=== PATIENT | female | born 1945 | race Caucasian/White ===

== ENCOUNTER 2017-10-22 20:38 | Emergency (ER) | payer OTHER ==
[~2017-10-22] VITALS: Ht 162.6 cm; Wt 50.9 kg
[~2017-10-22 20:38] MED LIST: AMT50 PO; LEVO100T PO
[2017-10-22 20:46] VITALS: Ht 162.6 cm; Wt 50.9 kg
[2017-10-22] MEDS ORDERED: SODIUM CHLORIDE 0.9% 1000ML 1,000 ML IV STA (20:51)
[2017-10-22] MEDS ORDERED: LEVO88TA3 PO (20:53)
[2017-10-22] MEDS ORDERED: CZR25 PO (20:53)
[2017-10-22] MEDS ORDERED: AMT/25 PO (20:53)
[2017-10-22] MEDS ORDERED: LORA-741 PO (20:53)
--- NOTE | 2017-10-22 20:55 | EMERGENCY ROOM VISIT NOTE ---
History Report prepared by Zara: Bridgett Goff Under the Supervision of: Dr. Farrukh Carter M.D. First contact with patient: 20:44 Stated Complaint: DIZZY/CONFUSED History of Present Illness The patient is a 72 year old female who presents to the Emergency Room with complaints of an episode of confusion and dizziness occurring about two hours ago. Per , the patient was not talking normally and states she was seeing "imaginary things". She denies any fevers, headache, chills, vomiting, diarrhea, cough, or congestion. The patient states she has been eating and drinking normally. She states she has never had something like this happen before. The patient has a history of depression. The patient notes her depression medication was increased yesterday. She reports feeling well and denies any increased depression recently. The patient denies any alcohol or drug use. Source of History: patient, spouse/significant other Onset: two hours ago Position: other (generalized) Quality: other (dizziness and confusion) Timing: other (episode) Associated Symptoms: No fevers, No chills, No headache, No cough, No vomiting, No diarrhea Review of Systems See HPI for pertinent positives and negatives. A total of ten systems were reviewed and were otherwise negative. Past Medical & Surgical Medical Problems: (1) No Known Active Medical Problems Family History Patient reports no known family medical history. Social History Smoking Status: Never Smoker Smokeless Tobacco Use: No Alcohol Use: none Drug Use: none Marital Status: Housing Status: lives with significant other Current/Historical Medications Scheduled Amitriptyline HCl (Amitriptyline HCl), 75 MG PO HS Cephalexin Monohydrate (Keflex), 500 MG PO BID Levothyroxine Sodium (Levothyroxine Sodium), 88 MCG PO DAILY Losartan Potassium (Losartan Potassium), 25 MG PO DAILY Scheduled PRN Lorazepam (Ativan), 0.5 MG PO Q8 PRN for Anxiety Allergies Coded Allergies: Codeine (Unverified Allergy, Unknown, VOMITING, 10/22/17) Prochlorperazine (Unverified Allergy, Unknown, "my jaw locks.", 10/22/17) "my jaw locks." Physical Exam Vital Signs Date Time Temp Pulse Resp B/P (MAP) Pulse Ox O2 Delivery O2 Flow Rate FiO2 10/22/17 23:14 36.9 92 18 161/86 99 10/22/17 22:00 90 16 172/93 94 Room Air 10/22/17 21:14 94 18 149/77 Room Air 10/22/17 20:51 97 10/22/17 20:46 37.6 96 18 161/89 97 Room Air Physical Exam GENERAL: Awake, alert, well-appearing, in no distress HENT: Normocephalic, atraumatic. Oropharynx unremarkable. Dry MM. EYES: Normal conjunctiva. Sclera non-icteric. NECK: Supple. No nuchal rigidity. FROM. No JVD. RESPIRATORY: Clear to auscultation. CARDIAC: Regular rate, normal rhythm. Extremities warm and well perfused. Pulses equal. ABDOMEN: Soft, non-distended. No tenderness to palpation. No rebound or guarding. No masses. RECTAL: Deferred. MUSCULOSKELETAL: Chest examination reveals no tenderness. The back is symmetrical on inspection without obvious abnormality. There is no CVA tenderness to palpation. No joint edema. LOWER EXTREMITIES: Calves are equal size bilaterally and non-tender. No edema. No discoloration. NEURO: Normal sensorium. No sensory or motor deficits noted. SKIN: No rash or jaundice noted. Medical Decision & Procedures ER Provider Diagnostic Interpretation: Radiology results as stated below per my review and radiologist interpretation: CHEST ONE VIEW PORTABLE FINDINGS: There is a thoracolumbar scoliosis. The heart is normal in size. There is no failure. There is no focal pulmonary consolidation. There are no pleural effusions. There is no free intraperitoneal air. There are partially calcified bilateral breast implants.[ IMPRESSION: No active disease in the chest. Electronically signed by: Randell Andino M.D. CT HEAD WITHOUT CONTRAST (CT) FINDINGS: No intra or extra-axial mass lesions are visualized. There is no CT evidence of acute cortical infarction. There is no evidence of midline shift. There is no acute hemorrhage. No calvarial fractures are visualized. There are patchy white matter hypodensities likely on a small vessel basis. There is mild ventricular prominence, a finding felt to be secondary to volume loss. There is no evidence of acute sinusitis IMPRESSION: No acute intracranial findings Electronically signed by: Randell Andino M.D. Laboratory Results 10/22/17 20:49 Red Blood Count 3.98, Mean Corpuscular Volume 94.7, Mean Corpuscular Hemoglobin 31.4, Mean Corpuscular Hemoglobin Concent 33.2, Mean Platelet Volume 9.7, Neutrophils (%) (Auto) 68.4, Lymphocytes (%) (Auto) 15.5, Monocytes (%) (Auto) 14.3, Eosinophils (%) (Auto) 1.3, Basophils (%) (Auto) 0.2, Neutrophils # (Auto ) 8.15, Lymphocytes # (Auto) 1.85, Monocytes # (Auto) 1.70, Eosinophils # (Auto ) 0.15, Basophils # (Auto) 0.02 10/22/17 20:49 Test 10/22/17 20:49 10/22/17 21:50 10/22/17 22:12 White Blood Count 11.90 K/uL (4.8-10.8) Red Blood Count 3.98 M/uL (4.2-5.4) Hemoglobin 12.5 g/dL (12.0-16.0) Hematocrit 37.7 % (37-47) Mean Corpuscular Volume 94.7 fL (80-100) Mean Corpuscular Hemoglobin 31.4 pg (25-34) Mean Corpuscular Hemoglobin Concent 33.2 g/dl (32-36) Platelet Count 281 K/uL (130-400) Mean Platelet Volume 9.7 fL (7.4-10.4) Neutrophils (%) (Auto) 68.4 % Lymphocytes (%) (Auto) 15.5 % Monocytes (%) (Auto) 14.3 % Eosinophils (%) (Auto) 1.3 % Basophils (%) (Auto) 0.2 % Neutrophils # (Auto) 8.15 K/uL (1.4-6.5) Lymphocytes # (Auto) 1.85 K/uL (1.2-3.4) Monocytes # (Auto) 1.70 K/uL (0.11-0.59) Eosinophils # (Auto) 0.15 K/uL (0-0.5) Basophils # (Auto) 0.02 K/uL (0-0.2) RDW Standard Deviation 53.0 fL (36.4-46.3) RDW Coefficient of Variation 15.2 % (11.5-14.5) Immature Granulocyte % (Auto) 0.3 % Immature Granulocyte # (Auto) 0.03 K/uL (0.00-0.02) Anion Gap 7.0 mmol/L (3-11) Est Creatinine Clear Calc Drug Dose 35.4 ml/min Estimated GFR () 56.0 Estimated GFR (Non- 48.4 BUN/Creatinine Ratio 14.9 (10-20) Calcium Level 8.4 mg/dl (8.5-10.1) Total Bilirubin 0.3 mg/dl (0.2-1) Direct Bilirubin < 0.1 mg/dl (0-0.2) Aspartate Amino Transf (AST/SGOT) 15 U/L (15-37) Alanine Aminotransferase (ALT/SGPT) 15 U/L (12-78) Alkaline Phosphatase 95 U/L (45-117) Troponin I < 0.015 ng/ml (0-0.045) Total Protein 7.3 gm/dl (6.4-8.2) Albumin 3.7 gm/dl (3.4-5.0) Lipase 145 U/L (73-393) Thyroid Stimulating Hormone (TSH) 3.790 uIu/ml (0.300-4.500) Urine Color YELLOW Urine Appearance CLOUDY (CLEAR) Urine pH 5.0 (4.5-7.5) Urine Specific [place] 1.020 (1.000-1.030) Urine Protein NEG (NEG) Urine Glucose (UA) NEG (NEG) Urine Ketones NEG (NEG) Urine Occult Blood NEG (NEG) Urine Nitrite POS (NEG) Urine Bilirubin NEG (NEG) Urine Urobilinogen NEG (NEG) Urine Leukocyte Esterase SMALL (NEG) Urine WBC (Auto) 5-10 /hpf (0-5) Urine RBC (Auto) 0-4 /hpf (0-4) Urine Hyaline Casts (Auto) 1-5 /lpf (0-5) Urine Epithelial Cells (Auto) >30 /lpf (0-5) Urine Bacteria (Auto) 4+ (NEG) Urine Opiates Screen NEG (NEG) Urine Methadone, Qualitative NEG (NEG) Urine Barbiturates NEG (NEG) Urine Phencyclidine (PCP) Level NEG (NEG) Ur Amphetamine/Methamphetamine NEG (NEG) MDMA (Ecstasy) Screen NEG (NEG) Urine Benzodiazepines Screen NEG (NEG) Urine Cocaine Metabolite NEG (NEG) Urine Marijuana (THC) NEG (NEG) Ethyl Alcohol mg/dL < 3.0 mg/dl (0-3) Laboratory results reviewed by me Medications Administered Medications (Trade) Dose Ordered Sig/Osiel Route Start Time Stop Time Status Last Admin Dose Admin Sodium Chloride 1,000 ml @ 999 mls/hr Q1H1M STAT IV 10/22/17 20:51 10/22/17 21:51 DC 10/22/17 21:13 999 MLS/HR Cephalexin Monohydrate (Keflex Cap) 500 mg NOW STAT PO 10/22/17 22:23 10/22/17 22:24 DC 10/22/17 22:51 500 MG ECG Indication: altered mental status Rate (beats per minute): 95 Rhythm: normal sinus Findings: RBBB (incomplete), no acute ischemic change, left axis deviation ED Course 2044: The patient was evaluated in room A2. A complete history and physical exam was performed. Medical Decision I reviewed the patient's past medical history, medications, and the nursing notes as described above. Differential diagnoses: adverse medication effect, dehydration, electrolyte abnormality, pneumonia, bronchitis, intracranial mass, UTI, anxiety, depression. The patient is a 72-year-old woman with a past medical history of anxiety and depression who presents emergency Department with transient episode of change in mental status where the believes the patient was talking to herself per hpi. Note the patient denies any awareness of this episode and at this time is acting normally. The symptoms do occur in the setting of the patient having medication changes including an increase in her dose amitriptyline and Synthroid over the past several days. I'll the patient is well-appearing, in no acute distress, afebrile stable vital signs. CT head unremarkable. CXR negative. Labs demonstrate a mildly elevated WBC however in the setting of grossly positive UA with positive nitrites. Will treat with Keflex. Otherwise , given the patient is currently at her baseline with no further episodes symptoms most likely secondary to her UTI in the setting of recent medication changes. Patient to follow-up with her PCP regarding the symptoms. Findings and plan for follow-up reviewed with patient. Patient agreeable and d/c'd per discharge instructions. Medication Reconcilliation Current Medication List: was personally reviewed by me Blood Pressure Screening Patient's blood pressure: Elevated blood pressure Blood pressure disposition: Elevated BP felt to be situational Impression Primary Impression: Intermittent confusion Additional Impression: Urinary tract infection Scribe Attestation The scribe's documentation has been prepared under my direction and personally reviewed by me in its entirety. I confirm that the note above accurately reflects all work, treatment, procedures, and medical decision making performed by me. Departure Information Dispostion Home / Self-Care Prescriptions Cephalexin Monohydrate (Keflex) 500 Mg Cap 500 MG PO BID for 7 Days, #14 CAP Prov: Farrukh Carter M.D. 10/22/17 Referrals Haris Dinh MD (PCP) Forms HOME CARE DOCUMENTATION FORM, IMPORTANT VISIT INFORMATION, WORK / SCHOOL INSTRUCTIONS Patient Instructions ED Confusion, My [facility] Additional Instructions Please follow up with your primary care physician in the next 1-3 days for re- evaluation and to discuss your symptoms and new medication changes. Your symptoms are most likely due to a urinary tract infection as well as your recent medication changes. Otherwise, your exam, EKG, chest xray, CT scan of your head, and lab results did not show signs of an emergent condition at this time. Keflex as directed. Ensure hydration. Return to the emergency department for worsening symptoms as described in the accompanying instructions. Problem Qualifiers
[2017-10-22 20:58] LABS: BASO % 0.2 %; BASO ABS # 0.02 K/uL (0-0.2); EOS % 1.3 %; EOS ABS # 0.15 K/uL (0-0.5); HEMATOCRIT 37.7 % (37-47); HEMOGLOBIN 12.5 g/dL (12.0-16.0); IG# 0.03 K/uL (0.00-0.02); LYMPH % 15.5 %; LYMPH ABS # 1.85 K/uL (1.2-3.4); MEAN CELL VOLUME 94.7 fL (80-100); MEAN CORPUSCULAR HEMOGLOBIN 31.4 pg (25-34); MEAN CORPUSCULAR HGB CONC 33.2 g/dl (32-36); MEAN PLATELET VOLUME 9.7 fL (7.4-10.4); MONO % 14.3 %; NEUT % 68.4 %; NEUT ABS # 8.15 K/uL (1.4-6.5); PLATELET COUNT 281 K/uL (130-400); RED CELL DISTRIBUTION WIDTH CV 15.2 % (11.5-14.5)
--- NOTE | 2017-10-22 21:09 | DIAGNOSTIC IMAGING REPORT ---
CT HEAD WITHOUT CONTRAST (CT) CLINICAL HISTORY: Acute change in mental status. Dizziness, confusion. COMPARISON STUDY: 09/15/2015 TECHNIQUE: Axial CT of the brain is performed from the vertex to the skull base. IV contrast was not administered for this examination. A dose lowering technique was utilized adhering to the principles of ALARA. CT DOSE: 537.48 mGy.cm FINDINGS: No intra or extra-axial mass lesions are visualized. There is no CT evidence of acute cortical infarction. There is no evidence of midline shift. There is no acute hemorrhage. No calvarial fractures are visualized. There are patchy white matter hypodensities likely on a small vessel basis. There is mild ventricular prominence, a finding felt to be secondary to volume loss. There is no evidence of acute sinusitis IMPRESSION: No acute intracranial findings Electronically signed by: Randell Andino M.D. 10/22/2017 9:08 PM Dictated Date/Time: 10/22/2017 9:07 PM
[2017-10-22 21:16] LABS: ALBUMIN 3.7 gm/dl (3.4-5.0); ALT/SGPT 15 U/L (12-78); BLOOD UREA NITROGEN 17 mg/dl (7-18); CALCIUM 8.4 mg/dl (8.5-10.1); CARBON DIOXIDE 25 mmol/L (21-32); CREATININE 1.12 mg/dl (0.60-1.20); GLUCOSE 124 mg/dl (70-99); LIPASE 145 U/L (73-393); POTASSIUM 3.7 mmol/L (3.5-5.1); SODIUM 138 mmol/L (136-145)
[2017-10-22 21:27] LABS: ALKALINE PHOSPHATASE 95 U/L (45-117); AST/SGOT 15 U/L (15-37); TOTAL PROTEIN 7.3 gm/dl (6.4-8.2)
--- NOTE | 2017-10-22 21:30 | DIAGNOSTIC IMAGING REPORT ---
CHEST ONE VIEW PORTABLE CLINICAL HISTORY: Pain, radiating to the abdomen. COMPARISON STUDY: No previous studies for comparison. FINDINGS: There is a thoracolumbar scoliosis. The heart is normal in size. There is no failure. There is no focal pulmonary consolidation. There are no pleural effusions. There is no free intraperitoneal air. There are partially calcified bilateral breast implants.[ IMPRESSION: No active disease in the chest. Electronically signed by: Randell Andino M.D. 10/22/2017 9:29 PM Dictated Date/Time: 10/22/2017 9:28 PM
[2017-10-22] MEDS ORDERED: CEPHALEXIN MONOHYDRATE 250 MG CAP PO STA (22:23)
[2017-10-22] MEDS ORDERED: CEPH500C PO (22:26)
[2017-10-22 23:14] VITALS: BP 161/86; PULSE 92; TEMP 36.9; O2SAT 99
--- NOTE | 2017-10-24 10:56 | Pharmacy Progress Note ---
ED Pharmacist Culture FollowUp Date of Service: Oct 24, 2017. Patient was sent home with a prescription for Keflex 500 mg BID x 7 days, which should cover the E. coli growing from the patient's urine culture.
== END 2017-10-22 23:16 | disposition home or self-care (01) ==
LOC: EDBD 20:38 → C.EDA 20:40
DX: R41.0 Disorientation, unspecified (principal); N39.0 Urinary tract infection, site not specified; I45.10 Unspecified right bundle-branch block; Z79.899 Other long term (current) drug therapy; Z88.5 Allergy status to narcotic agent; Z88.8 Allergy status to other drugs, medicaments and biological substances

== ENCOUNTER → 2017-10-25 | Outpatient (CLI) | payer OTHER ==
[~2017-10-25] MED LIST changes: +AMT/25 PO; -AMT50 PO; +CEPH500C PO; +CZR25 PO; +GADAVIST IV PRN; -LEVO100T PO; +LEVO88TA3 PO; +LORA-741 PO
--- NOTE | 2017-10-25 13:03 | DIAGNOSTIC IMAGING REPORT ---
BRAIN COMBO CLINICAL HISTORY: HTN, SEVERE DEPRESSION DISORDER, MEMORY LOSS mental status change COMPARISON STUDY: CT 10/22/2017 TECHNIQUE: Utilizing a 1.5 Ana magnet and dedicated coil, multiplanar, multiecho imaging of the brain was performed pre and postcontrast administration. IV administration of 9 mL of Gadavist contrast was uneventful. FINDINGS: Diffusion-weighted images are negative for an acute ischemic insult. There are findings of mild age-related atrophy as well as chronic small vessel change. Mild compensatory prominence of the ventricular system is noted. Postcontrast images are negative for an enhancing lesion. Sella and parasellar regions are unremarkable. The internal artery canals are symmetric. IMPRESSION: Age-related atrophy and chronic small vessel change. No acute process. No abnormal postcontrast enhancement The above report was generated using voice recognition software. It may contain grammatical, syntax or spelling errors. Electronically signed by: Saw Hylton M.D. 10/25/2017 1:01 PM Dictated Date/Time: 10/25/2017 12:58 PM
== END | disposition home or self-care (01) ==
LOC: C.MRI 10:58
PROVIDERS: ATTEND Internal Medicine
DX: I10 Essential (primary) hypertension (principal); F33.2 Major depressive disorder, recurrent severe without psychotic features; R41.3 Other amnesia; R51 Headache

== ENCOUNTER 2019-08-30 11:12 | Inpatient (IN) ==
[2019-08-30 11:43] LABS: Basophils # (auto) 0.03 K/uL (0-0.2); Basophils % (auto) 0.5 %; Eosinophils % (auto) 4.7 %; Hematocrit (blood only) 39.7 % (37-47); Hemoglobin 13.2 g/dL (12.0-16.0); Immature Granulocytes # (auto) 0.02 K/uL (0.00-0.02); Immature Granulocytes % (auto) 0.3 %; Lymphocytes # (auto) 1.65 K/uL (1.2-3.4); Lymphocytes % (auto) 25.9 %; Mean Corpuscular Hemoglobin 31.3 pg (25-34); Mean Corpuscular Hgb Conc 33.2 g/dL (32-36); Mean Corpuscular Volume 94.1 fL (80-100); Mean Platelet Volume 10.2 fL (7.4-10.4); Monocytes # (auto) 0.73 K/uL (0.11-0.59); Monocytes % (auto) 11.4 %; Neutrophils # (auto) 3.65 K/uL (1.4-6.5); Neutrophils % (auto) 57.2 %; Platelet Count 242 K/uL (130-400); RDW Coefficient of Variation 14.6 % (11.5-14.5); RDW Standard Deviation 49.9 fL (36.4-46.3); Red Blood Count 4.22 M/uL (4.2-5.4); White Blood Count 6.38 K/uL (4.8-10.8)
[2019-08-30 11:59] LABS: Albumin Level 4.3 gm/dl (3.4-5.0); BUN Creatinine Ratio 14.8 (10-20); Calcium 8.9 mg/dl (8.5-10.1); Creatinine Clr Calc Pharmacy 40.5 ml/min; Est GFR (African American) 61.9; Est GFR (Non-African American) 53.4; Potassium 3.6 mmol/L (3.5-5.1)
[2019-08-30 12:15] LABS: Albumin Globulin Ratio 1.5 (0.9-2); Bilirubin,Total 0.5 mg/dl (0.2-1); Globulin 2.9 gm/dl (2.5-4.0); Total Protein 7.2 gm/dl (6.4-8.2); Troponin I 0.046 ng/ml (0-0.045)
--- NOTE | 2019-08-30 12:16 | XRay Report ---
XR chest 1V portable CLINICAL HISTORY: 74 years-old Female presenting with Chest Pain. TECHNIQUE: Portable upright AP view of the chest was obtained. COMPARISON: 10/22/2017. FINDINGS: Calcified bilateral breast implants noted. Cardiac silhouette mildly enlarged. Mild interstitial prom inence. No focal opacity. No large effusion or pneumothorax. Osteopenia may be present. Mild degenera tive changes and scoliosis of the spine. A hiatal hernia may be present. IMPRESSION: 1. Mild cardiomegaly. No other convincing evidence of acute cardiopulmonary disease. 2. Suspected hiatal hernia. Electronically signed by: Jose Hodges M.D. 08/30/2019 12:15 PM
[2019-08-30] MEDS ORDERED: NITROGLYCERIN 2% OINTMENT 30GM TUBE EXT STA (12:27)
[2019-08-30] MEDS ORDERED: ASPIRIN CHEW 324 MG PO STA (12:27)
--- NOTE | 2019-08-30 12:52 | Emergency Department Note ---
Entered by Leigh Price acting as a scribe for Pallavi Dugan DO History of Present Illness General Chief complaint: Chest Pain Stated complaint: chest pain x2 days l sided Time Seen by Provider: 08/30/19 12:01 Source: patient History of Present Illness Onset (ago): day(s) 2 Location: chest Radiation: neck and extremity (left arm) Pain Consistency: + constant Maximum Pain Intensity: 7 Relieved By: + medication (Advil); not by other (change in position) Associated symptoms: + denies other symptoms (flu-like symptoms, pain radiating to her back, dizziness, lightheadedness, change in bowel movements, urinary symptoms, leg swelling); no nausea/vomiting (nausea) and no shortness of breath The patient is a 74 year old female who presents to the Emergency Room with complaints of constant chest pain starting 2 days ago. The patient states that she has been having constant chest pain in the left side of her chest that radiates down her left arm and somewhat into her neck. She states that she thought it would just go away, but it has persisted. She notes that she was awake all night with it. She notes that no matter what position she tries to get in, she cannot get any relief. The patient states that she tried taking some Advil with only mild relief. She notes that it only took the edge off. The patient notes that she had flu-like symptoms a few weeks ago, but got over it and was back to normal before this happened. She notes that she does get intermittent heart burn and last had a week ago. She reports that she typically takes an antacid and it goes away, but this chest pain is different. The patient denies ever having chest pain like this before, the pain radiating to her back, shortness of breath, dizziness, lightheadedness, nausea, changes in medications, changes in activity, change in bowel movements, urinary symptoms, leg swelling, recent long travel, a family history of cardiac problems, and ever seeing a enrobing machine corder before. Home Medications Home Medications Medication Instructions Recorded Confirmed Type aripiprazole 2 mg PO DAILY 08/30/19 08/30/19 History ascorbic acid (vitamin C) [Vitamin 1,000 mg PO QAM 08/30/19 08/30/19 History C] buspirone 10 mg PO BID 08/30/19 08/30/19 History ergocalciferol (vitamin D2) 50,000 unit PO MONTHLY 08/30/19 08/30/19 History ibuprofen [Advil] 200 mg PO QID PRN 08/30/19 08/30/19 History levothyroxine [Synthroid] 44 mcg PO HAQ 08/30/19 08/30/19 History levothyroxine [Synthroid] 88 mcg PO QAM 08/30/19 08/30/19 History losartan 50 mg PO QAM 08/30/19 08/30/19 History mirtazapine 30 mg PO HS 08/30/19 08/30/19 History multivitamin 1 tab PO QAM 08/30/19 08/30/19 History venlafaxine 75 mg PO QAM 08/30/19 08/30/19 History venlafaxine 150 mg PO QAM 08/30/19 08/30/19 History Allergies Allergy/AdvReac Type Severity Reaction Status Date / Time codeine Allergy Unknown VOMITING Unverified 08/30/19 12:01 prochlorperazine Allergy Unknown "my jaw Unverified 08/30/19 12:01 locks." Past Med/Surg History Medical History Anxiety Depression Diastolic dysfunction GERD (gastroesophageal reflux disease) History of thyroid cancer HTN (hypertension) Hypothyroidism Surgical History H/O nasal septoplasty H/O thyroidectomy History of appendectomy History of tonsillectomy and adenoidectomy S/P left knee arthroscopy Family History Father Bone cancer Social History Preferred Language: Turkish Communication Ability: Effective 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 and A total of 10 systems reviewed and were otherwise negative Physical Exam Vital Signs Vital Signs - 24 hr 08/30/19 11:16 08/30/19 11:21 08/30/19 11:24 Temperature 36.6 C Temperature Source Oral Pulse Rate 95 H 90 90 Pulse Rate [Apical] Pulse Rate from SpO2 Sensor 90 Pulse Rhythm [Apical] Respiratory Rate 20 14 23 Respiratory Effort / Characteristics Respiratory Depth Respiratory Pattern Blood Pressure 160/100 H 148/93 H Blood Pressure [Left Arm] Blood Pressure Mean 120 104 Blood Pressure Mean [Left Arm] Blood Pressure Position [Left Arm] Pulse Oximetry 98 99 Oxygen Delivery Method Room Air Sepsis Recent Fever Within 48 Hours No Sepsis New/Unexplained Change in Mental Status No Sepsis Action Taken by Nursing No Action Required 08/30/19 11:30 08/30/19 11:31 08/30/19 11:35 Temperature Temperature Source Pulse Rate 90 90 Pulse Rate [Apical] Pulse Rate from SpO2 Sensor 91 H 89 Pulse Rhythm [Apical] Respiratory Rate 19 18 Respiratory Effort / Characteristics Respiratory Depth Respiratory Pattern Blood Pressure 154/100 H Blood Pressure [Left Arm] Blood Pressure Mean 114 Blood Pressure Mean [Left Arm] Blood Pressure Position [Left Arm] Pulse Oximetry 98 99 98 Oxygen Delivery Method Room Air Sepsis Recent Fever Within 48 Hours Sepsis New/Unexplained Change in Mental Status Sepsis Action Taken by Nursing 08/30/19 12:00 08/30/19 12:01 08/30/19 12:30 Temperature Temperature Source Pulse Rate 86 81 89 Pulse Rate [Apical] Pulse Rate from SpO2 Sensor 82 81 89 Pulse Rhythm [Apical] Respiratory Rate 13 15 17 Respiratory Effort / Characteristics Respiratory Depth Respiratory Pattern Blood Pressure 174/99 H 157/106 H Blood Pressure [Left Arm] Blood Pressure Mean 133 127 Blood Pressure Mean [Left Arm] Blood Pressure Position [Left Arm] Pulse Oximetry 98 97 99 Oxygen Delivery Method Sepsis Recent Fever Within 48 Hours Sepsis New/Unexplained Change in Mental Status Sepsis Action Taken by Nursing 08/30/19 12:31 08/30/19 12:42 08/30/19 12:43 Temperature Temperature Source Pulse Rate 90 93 H Pulse Rate [Apical] 94 H Pulse Rate from SpO2 Sensor 92 H Pulse Rhythm [Apical] Regular Respiratory Rate 17 18 17 Respiratory Effort / Characteristics Non-Labored Spontaneous Respiratory Depth Normal Respiratory Pattern Regular Blood Pressure 163/95 H Blood Pressure [Left Arm] 163/95 H Blood Pressure Mean 114 Blood Pressure Mean [Left Arm] 117 Blood Pressure Position [Left Arm] Pulse Oximetry 97 96 Oxygen Delivery Method Room Air Sepsis Recent Fever Within 48 Hours Sepsis New/Unexplained Change in Mental Status Sepsis Action Taken by Nursing 08/30/19 13:00 08/30/19 13:01 08/30/19 13:30 Temperature Temperature Source Pulse Rate 94 H 93 H 91 H Pulse Rate [Apical] Pulse Rate from SpO2 Sensor 92 H Pulse Rhythm [Apical] Respiratory Rate 23 18 22 Respiratory Effort / Characteristics Respiratory Depth Respiratory Pattern Blood Pressure 147/107 H 149/93 H Blood Pressure [Left Arm] Blood Pressure Mean 115 105 Blood Pressure Mean [Left Arm] Blood Pressure Position [Left Arm] Pulse Oximetry 97 Oxygen Delivery Method Sepsis Recent Fever Within 48 Hours Sepsis New/Unexplained Change in Mental Status Sepsis Action Taken by Nursing 08/30/19 13:31 08/30/19 14:56 08/30/19 15:39 Temperature Temperature Source Pulse Rate 94 H Pulse Rate [Apical] 89 Pulse Rate from SpO2 Sensor Pulse Rhythm [Apical] Regular Respiratory Rate 22 17 Respiratory Effort / Characteristics Non-Labored Spontaneous Respiratory Depth Normal Respiratory Pattern Regular Blood Pressure Blood Pressure [Left Arm] 137/73 Blood Pressure Mean Blood Pressure Mean [Left Arm] 94 Blood Pressure Position [Left Arm] Pulse Oximetry 96 Oxygen Delivery Method Room Air Room Air Sepsis Recent Fever Within 48 Hours Sepsis New/Unexplained Change in Mental Status Sepsis Action Taken by Nursing 08/30/19 16:21 Temperature 36.5 C Temperature Source Oral Pulse Rate Pulse Rate [Apical] 84 Pulse Rate from SpO2 Sensor Pulse Rhythm [Apical] Respiratory Rate 18 Respiratory Effort / Characteristics Non-Labored Spontaneous Respiratory Depth Normal Respiratory Pattern Regular Blood Pressure Blood Pressure [Left Arm] 135/80 Blood Pressure Mean Blood Pressure Mean [Left Arm] 98 Blood Pressure Position [Left Arm] Sitting Pulse Oximetry 98 Oxygen Delivery Method Room Air Sepsis Recent Fever Within 48 Hours Sepsis New/Unexplained Change in Mental Status Sepsis Action Taken by Nursing GENERAL: alert, well appearing, well nourished, no distress, non-toxic EYE EXAM: normal conjunctiva, PERRL and EOM's grossly intact OROPHARYNX: no exudate, no erythema, lips, buccal mucosa, and tongue normal and mucous membranes are moist NECK: supple, no nuchal rigidity, no adenopathy, non-tender LUNGS: Clear to auscultation. Normal chest wall mechanics, no w/r/r HEART: no murmurs, S1 normal and S2 normal CHEST: No reproducible chest wall tenderness. ABDOMEN: abdomen soft, non-tender, normo-active bowel sounds, no masses, no rebound or guarding. BACK: Back is symmetrical on inspection and there is no deformity, no midline tenderness, no CVA tenderness. SKIN: no rashes and no bruising UPPER EXTREMITIES: upper extremities are grossly normal. FROM, nml pulses b/l. LOWER EXTREMITIES: No pitting edema. FROM, nml pulses b/l. NEURO EXAM: Normal sensorium, cranial nerves II-XII grossly intact, normal speech, no gross weakness of arms, no gross weakness of legs. Course Course 1217: The patient was evaluated in room A10. A complete history and physical exam was performed. I updated her on her test results and the treatment plan at this time. The patient verbally agrees and understands. 1302: I [facility] the patient[facility] She will evaluate the patient for further management. 1320: Patient initially had some relief with application of Nitropaste and aspirin, however then states pain return. Additional medications will be added. Patient updated on plan to initiate heparin drip. Patient with no recent major surgery or prior episodes of significant bleeding. No history of any other bleeding dyscrasias. Administered Medications Heparin Sodium/Dextrose (Heparin Sodium/Dextrose) 25,000 units in 500 mls @ 0.02 mls/hr IV .Q24H [facility]; Protocol Stop: 09/29/19 12:59 Last Admin: 08/30/19 13:49 Dose: 650 units/hr, 13 mls/hr Documented by: [id number] Cosigned by: [id number] Metoprolol Tartrate (Lopressor) 25 mg PO BID [facility] Stop: 09/29/19 14:14 Last Admin: 08/30/19 17:46 Dose: 25 mg Documented by: [id number] Discontinued Medications Aspirin (Aspirin) 324 mg PO NOW STA Stop: 08/30/19 12:28 Last Admin: 08/30/19 12:39 Dose: 324 mg Documented by: [id number] Heparin Sodium (Porcine) (Heparin Sodium (Porcine)) Confirm Administered Dose 5,000 units .ROUTE .STK-MED ONE Stop: 08/30/19 13:41 Last Admin: 08/30/19 13:49 Dose: 3,000 units Documented by: [id number] Cosigned by: [id number] Heparin Sodium/Dextrose () 1 ea N/A NOW STA; Protocol Stop: 08/30/19 13:00 Last Admin: 08/30/19 13:53 Dose: Not Given Documented by: [id number] Nitroglycerin (Nitro-Bid 2%) 1 inch EXT Q6H STA Stop: 08/30/19 12:28 Last Admin: 08/30/19 12:39 Dose: 1 inch Documented by: [id number] Critical Care Time Critical Care Time: Yes Total Critical Care Time: 35 I have personally spent 35 minutes of critical care time in the direct management of this patient. This includes bedside care, interpretation of diagno stic studies, and testing, discussion with consultants, patient, and family members, and other required patient management activities. This 35 minutes is in excess of all separately billable procedures. Medical Decision Making Differential Diagnosis Differential diagnoses includes but is not limited to acute coronary syndrome, myocardial infarction, pericarditis, pulmonary embolus, aortic dissection, pneumonia, pneumothorax, musculoskeletal, shingles, esophageal. Medical Records Attestation: I reviewed the patient's medical records. Home Medications Current Medication List: was personally reviewed by me Laboratory Data Attestation: I reviewed the patient's lab results. Result diagrams: 08/30/19 11:30 08/30/19 11:30 Lab Results 08/30/19 08/30/19 08/30/19 Range/Units 11:30 11:30 11:30 WBC 6.38 (4.8-10.8) K/uL RBC 4.22 (4.2-5.4) M/uL Hgb 13.2 (12.0-16.0) g/dL Hct 39.7 (37-47) % MCV 94.1 (80-100) fL MCH 31.3 (25-34) pg MCHC 33.2 (32-36) g/dL RDW Std Deviation 49.9 H (36.4-46.3) fL RDW Coeff of Juan 14.6 H (11.5-14.5) % Plt Count 242 (130-400) K/uL MPV 10.2 (7.4-10.4) fL Immature Gran % (Auto) 0.3 % Neut % (Auto) 57.2 % Lymph % (Auto) 25.9 % Faulkner % (Auto) 11.4 % Eos % (Auto) 4.7 % Baso % (Auto) 0.5 % Immature Gran # (Auto) 0.02 (0.00-0.02) K/uL Neut # (Auto) 3.65 (1.4-6.5) K/uL Lymph # (Auto) 1.65 (1.2-3.4) K/uL Faulkner # (Auto) 0.73 H (0.11-0.59) K/uL Eos # (Auto) 0.30 (0-0.5) K/uL Baso # (Auto) 0.03 (0-0.2) K/uL PT 10.9 (9.0-12.0) Seconds INR 1.1 (0.9-1.1) Sodium 141 (136-145) mmol/L Potassium 3.6 (3.5-5.1) mmol/L Chloride 107 (98-107) mmol/L Carbon Dioxide 26 (21-32) mmol/L Anion Gap 8.0 (3-11) BUN 15 (7-18) mg/dl Creatinine 1.02 (0.6-1.2) mg/dl Est Cr Clr Drug Dosing 40.5 ml/min Est GFR ( Amer) 61.9 Est GFR (Non-Af Amer) 53.4 BUN/Creatinine Ratio 14.8 (10-20) Glucose 108 H (70-99) mg/dl Calcium 8.9 (8.5-10.1) mg/dl Total Bilirubin 0.5 (0.2-1) mg/dl AST 13 L (15-37) U/L ALT 16 (12-78) U/L Alkaline Phosphatase 86 (45-117) U/L Troponin I 0.046 H* (0-0.045) ng/ml Total Protein 7.2 (6.4-8.2) gm/dl Albumin 4.3 (3.4-5.0) gm/dl Globulin 2.9 (2.5-4.0) gm/dl Albumin/Globulin Ratio 1.5 (0.9-2) Lipase 169 (73-393) U/L Imaging Data Radiologist's Impression: Radiology results as stated below per my review and the radiologist's interpretation: XR chest 1V portable CLINICAL HISTORY: 74 years-old Female presenting with Chest Pain. TECHNIQUE: Portable upright AP view of the chest was obtained. COMPARISON: 10/22/2017. FINDINGS: Calcified bilateral breast implants noted. Cardiac silhouette mildly enlarged. Mild interstitial prominence. No focal opacity. No large effusion or pneumothorax. Osteopenia may be present. Mild degenerative changes and scoliosis of the spine. A hiatal hernia may be present. IMPRESSION: 1. Mild cardiomegaly. No other convincing evidence of acute cardiopulmonary disease. 2. Suspected hiatal hernia. Electronically signed by: Jose Hodges M.D. 08/30/2019 12:15 PM ECG Data Attestation: I personally reviewed and interpreted this ECG as follows: Indication: + chest pain Rate (beats per minute): 89 Rhythm: + sinus rhythm ECG Brady: + Left axis deviation ECG ST segments: no ST elevation ECG Findings: + Q waves (V2 and V3) and + Other (normal intervals); no PACs and no PVCs Comparison ECG Date: from (10/22/2017) Change: no significant change Blood Pressure Blood Pressure Findings: Elevated blood pressure Blood Pressure Disposition: further management by hospitalist MACIEJ Narrative Heart score 6 Patient here complaining of persistent chest pain without other obvious pathology. Patient with risk factors for coronary artery disease and elevated heart score. I do not suspect PE, tamponade, effusion, dissection, aneurysm, perforation, GI bleed, mediastinitis, occult pneumonia or effusion. I did discuss with her all results and she was in agreement with plan for additional inpatient management. Case discussed with hospitalist team. Patient hemodynamically stable. Initially with elevated blood pressures however these improved after application of Nitropaste and pain control. Impression & Plan Chest pain, Elevated troponin Discharge Plan Visit Data *Final* Discharge Date/Time: 08/30/19 14:56 Chief Complaint: Chest Pain Stated Complaint: chest pain x2 days l sided ED Provider: Pallavi Dugan Discharge Problem: Chest pain, Elevated troponin Patient Disposition: Admitted As Inpatient Discharge Instructions Interventions: ED Discharge Assessment Last Done: 08/30/19 14:56 Discharge Problem: Chest pain Qualifiers: Chest pain type: unspecified Qualified Code(s): R07.9 - Chest pain, unspecified The scribe's documentation has been prepared under my direction and personally reviewed by me in its entirety. I confirm that the note above accurately reflects all work, treatment, procedures, and medical decision making performed by me.
[2019-08-30] MEDS ORDERED: Heparin IV Low Dose WITH Bolus STA (12:59)
[2019-08-30] MEDS ORDERED: HEPARIN SODIUM/DEXTROSE 25,000 UNITS/500 ML BAG IV SCH (13:00)
[2019-08-30] MEDS ORDERED: HEPARIN SOD 5,000 UNIT/0.5 ML VIAL ONE (13:40)
[2019-08-30] MEDS ORDERED: ACETAMINOPHEN 1,000 MG/100 ML VIAL IV STA (13:56)
[2019-08-30 13:57] LABS: INR 1.1 (0.9-1.1); Prothrombin Time 10.9 Seconds (9.0-12.0)
[2019-08-30] MEDS ORDERED: FAMOTIDINE 20MG/5ML IV PUSH IV STA (13:57)
--- NOTE | 2019-08-30 16:12 | Cardiology Consultation ---
Date of Consultation August 30, 2019 Assessment & Plan (1) Chest pain: Probable non-ST segment elevation myocardial infarction with crescendo angina pattern. EKGs reflective of possible septal ischemia with wall motion abnormality observed on echocardiogram Patient symptoms relieved currently topical nitrates. IV heparin and oral beta-hi ordered We will continue topical nitrates Discussed findings in detail with the patient and it was well with her . Recommendations made for diagnostic cardiac catheterization in a.m. sooner with any acute complaints Procedure and risks explained in detail to the patient and informed consent obtained. We will hydrate gently this evening Further recommendations pending the results of study (2) Elevated troponin: (3) HTN (hypertension): History of Present Illness Reason for Consultation: Chest pain, abnormal EKG Requesting Physician: Dr. Eunice Xie Attending Physician: Douglas Dawson MD History of Present Illness Patient is a 74-year-old female without prior history of cardiac disease cardiac risk factors of age, hypertension hyperlipidemia only Underlying medical issues as noted below including chronic anxiety hypothyroidism. Patient presents now noting approximately 2 to 3-day history of intermittent chest heavy pressure pain radiating to left shoulder and left arm symptoms gradually worsened and resulted in ER presentation today. Symptoms were relieved in the emergency room with topical nitrates and patient begun on IV heparin after EKG demonstrated T wave inversions anterior leads and mildly elevated troponin noted on lab work Patient feels substantially improved since treatments. No chest pains, shortness of breath, dizziness, lightheadedness. She denies prior history of myocardial infarction angina, congestive heart failure, rheumatic fever, renal or hepatic disease, fevers chills or recent significant infections.. She denies history of melena hematochezia dysuria hematuria no bleeding difficulties or complications. Appetite and weighted been stable. Notes no sleep disruption. Generally active about home climbs stairs walks carries groceries without specific limitation until recent event Allergies Allergy/AdvReac Type Severity Reaction Status Date / Time codeine Allergy Unknown VOMITING Unverified 08/30/19 12:01 prochlorperazine Allergy Unknown "my jaw Unverified 08/30/19 12:01 locks." Home Medications Home Medications Medication Instructions Recorded Confirmed Type aripiprazole 2 mg PO DAILY 08/30/19 08/30/19 History ascorbic acid (vitamin C) [Vitamin 1,000 mg PO QAM 08/30/19 08/30/19 History C] buspirone 10 mg PO BID 08/30/19 08/30/19 History ergocalciferol (vitamin D2) 50,000 unit PO MONTHLY 08/30/19 08/30/19 History ibuprofen [Advil] 200 mg PO QID PRN 08/30/19 08/30/19 History levothyroxine [Synthroid] 44 mcg PO HAQ 08/30/19 08/30/19 History levothyroxine [Synthroid] 88 mcg PO QAM 08/30/19 08/30/19 History losartan 50 mg PO QAM 08/30/19 08/30/19 History mirtazapine 30 mg PO HS 08/30/19 08/30/19 History multivitamin 1 tab PO QAM 08/30/19 08/30/19 History venlafaxine 75 mg PO QAM 08/30/19 08/30/19 History venlafaxine 150 mg PO QAM 08/30/19 08/30/19 History Patient History Medical History Arm fracture, left Family History Other Family history non-contributory Social History marital status: Current Living Situation: Spouse current occupational status: retired Feels Safe at Home: Yes Smoking Status: Never smoker Physical Exam Constitutional: WD/WN, vitals as above + thin; no acute distress Eyes: PERRL, conjunctivae normal, anicteric sclerae ENMT: external ear and nose normal, oropharynx normal Neck: trachea midline, no thyromegaly (Thyroidectomy scar present) Respiratory: normal respiratory effort, lungs clear to auscultation Cardiovascular: Rate/Rhythm: regular rate and regular rhythm Heart Sounds: normal S1 and normal S2; no gallop and no murmur Palpation: normal PMI Vessels: normal carotid upstroke and radial pulses present; no JVD and no carotid bruit Extremities: no edema Chest (Breasts): Additional Comments: Bilateral breast implants present Gastrointestinal (Abdomen): normal bowel sounds, soft, nontender, no hepatosplenomegaly Musculoskeletal: no cyanosis or clubbing, extremities motor strength 5/5 Skin: no rashes, warm and dry Neurologic: PERRL, EOMI, accommodation nl, no face palsy, no dysarthria Psychiatric: A+Ox3, euthymic affect Results & Data Vital Signs (Past 12 Hours) Vital Signs Temp Pulse Pulse Resp BP BP Pulse Ox 08/30/19 15:39 89 17 137/73 96 08/30/19 13:31 94 H 22 08/30/19 13:30 91 H 22 149/93 H 97 08/30/19 13:01 93 H 18 08/30/19 13:00 94 H 23 147/107 H 08/30/19 12:43 93 H 17 163/95 H 08/30/19 12:42 94 H 18 163/95 H 96 08/30/19 12:31 90 17 97 08/30/19 12:30 89 17 157/106 H 99 08/30/19 12:01 81 15 97 08/30/19 12:00 86 13 174/99 H 98 08/30/19 11:35 98 08/30/19 11:31 90 18 99 08/30/19 11:30 90 19 154/100 H 98 08/30/19 11:24 90 23 148/93 H 99 08/30/19 11:21 90 14 08/30/19 11:16 36.6 C 95 H 20 160/100 H 98 Laboratory Results Laboratory Results - last 24 hr 08/30/19 08/30/19 08/30/19 11:30 11:30 11:30 WBC 6.38 RBC 4.22 Hgb 13.2 Hct 39.7 MCV 94.1 MCH 31.3 MCHC 33.2 RDW Std Deviation 49.9 H RDW Coeff of Juan 14.6 H Plt Count 242 MPV 10.2 Immature Gran % (Auto) 0.3 Neut % (Auto) 57.2 Lymph % (Auto) 25.9 Swain % (Auto) 11.4 Eos % (Auto) 4.7 Baso % (Auto) 0.5 Immature Gran # (Auto) 0.02 Neut # (Auto) 3.65 Lymph # (Auto) 1.65 Swain # (Auto) 0.73 H Eos # (Auto) 0.30 Baso # (Auto) 0.03 PT 10.9 INR 1.1 Sodium 141 Potassium 3.6 Chloride 107 Carbon Dioxide 26 Anion Gap 8.0 BUN 15 Creatinine 1.02 Est Cr Clr Drug Dosing 40.5 Est GFR ( Amer) 61.9 Est GFR (Non-Af Amer) 53.4 BUN/Creatinine Ratio 14.8 Glucose 108 H Calcium 8.9 Total Bilirubin 0.5 AST 13 L ALT 16 Alkaline Phosphatase 86 Troponin I 0.046 H* Total Protein 7.2 Albumin 4.3 Globulin 2.9 Albumin/Globulin Ratio 1.5 Lipase 169 Diagnostic Findings Echocardiogram 08/30/2019 Mild to moderate left hypertrophy with focal hypokinesis of the mid and apical inferior and anteroseptal and otherwise preserved LV function EF 55% No significant valvular disease EKG 11:21:51 [facility] ROUTINE RETRIEVAL Normal sinus rhythm Possible Left atrial enlargement Left axis deviation Poor R wave progression, consider anterior [place] vs. lead placement vs. LVH Nonspecific ST abnormality Abnormal ECG When compared with ECG of 22-OCT-2017 20:55, T wave inversion now evident in Anterior leads Confirmed by Jaime Sanford ([id number]) on 08/30/2019 12:35:39 [id number] 11:21:51 [facility] ROUTINE RETRIEVAL Normal sinus rhythm Possible Left atrial enlargement Left axis deviation Poor R wave progression, consider anterior [place] vs. lead placement vs. LVH Nonspecific ST abnormality Abnormal ECG When compared with ECG of 22-OCT-2017 20:55, T wave inversion now evident in Anterior leads Confirmed by Jaime Sanford ([id number]) on 08/30/2019 12:35:39 PM (1) Chest pain Chest pain type: unspecified Qualified Code(s): R07.9 - Chest pain, unspecified
[2019-08-30] MEDS ORDERED: SODIUM CHLORIDE 0.9% 1000ML 1,000 ML IV SCH (16:30)
[2019-08-30] MEDS ORDERED: NITROGLYCERIN 2% OINTMENT 30GM TUBE EXT SCH (16:45)
--- NOTE | 2019-08-30 17:10 | History & Physical Report ---
Date of Service August 30, 2019 Assessment & Plan (1) NSTEMI (non-ST elevated myocardial infarction): -Admit to telemetry -Patient presenting from home with reports of waxing and waning chest pain for the past 2 days -In the ED, EKG demonstrates new T wave inversions in the anterior leads, initial troponin mildly elevated 0.046 -Resting echo demonstrates septal wall hypokinesis -Risk factors: HTN, age -Patient now chest pain-free after topical nitro applied in the ED; will continue -Heparin drip started, will continue -Beta-hi ordered -Case discussed with cardiology, Dr. Agarwal -N.p.o. after midnight for cardiac catheterization (2) HTN (hypertension): -BP elevated on presentation, improved after topical nitro -Continue losartan -Starting metoprolol as above (3) Diastolic dysfunction: -Grade 1 diastolic dysfunction noted on echo -Appears euvolemic -Does not take routine diuretics (4) Hypothyroidism: -Continue levothyroxine (5) Depression: (6) Anxiety: -Continue home medications (7) DVT prophylaxis: -On heparin drip History of Present Illness Chief Complaint: Chest pain Primary Care Provider: Haris Dinh MD 74-year-old female who presents the ED for evaluation of chest pain. Patient reports her symptoms began about 2 days ago. Chest pain started while patient was at rest. Reports chest pain has been coming and going over the past couple of days. Pain acutely worsened last night into this morning and therefore patient presented to the ED for further evaluation. She also had associated diaphoresis today. Patient describes the pain is located on the left side of her chest. She describes it as an ache. She also has radiation of the pain into her left arm. No specific causative or alleviating factors. Patient rates her pain as a #9/10 at its worst. No associated shortness of breath, nausea, lightheadedness, dizziness, syncopal event. Reports she otherwise has been feeling well recently. Says she is very active at baseline, climbs stairs on a regular basis, and can perform activities of daily living without difficulty. No other recent illnesses, fevers, chills. She denies abdominal pain, vomiting, diarrhea. No urinary symptoms. In the ED, EKG demonstrates new T wave inversions in the anterior leads. Initial troponin mildly elevated 0.046. BP is mildly elevated but otherwise patient is hemodynamically stable. She was given topical nitroglycerin with subsequent resolution of chest pain. She was also given IV Tylenol, full dose aspirin, and started on heparin drip. Allergies Allergy/AdvReac Type Severity Reaction Status Date / Time codeine Allergy Unknown VOMITING Unverified 08/30/19 12:01 prochlorperazine Allergy Unknown "my jaw Unverified 08/30/19 12:01 locks." Home Medications Home Medications Medication Instructions Recorded Confirmed Type aripiprazole 2 mg PO DAILY 08/30/19 08/30/19 History ascorbic acid (vitamin C) [Vitamin 1,000 mg PO QAM 08/30/19 08/30/19 History C] buspirone 10 mg PO BID 08/30/19 08/30/19 History ergocalciferol (vitamin D2) 50,000 unit PO MONTHLY 08/30/19 08/30/19 History ibuprofen [Advil] 200 mg PO QID PRN 08/30/19 08/30/19 History levothyroxine [Synthroid] 44 mcg PO HAQ 08/30/19 08/30/19 History levothyroxine [Synthroid] 88 mcg PO QAM 08/30/19 08/30/19 History losartan 50 mg PO QAM 08/30/19 08/30/19 History mirtazapine 30 mg PO HS 08/30/19 08/30/19 History multivitamin 1 tab PO QAM 08/30/19 08/30/19 History venlafaxine 75 mg PO QAM 08/30/19 08/30/19 History venlafaxine 150 mg PO QAM 08/30/19 08/30/19 History Past Med/Surg History Medical History Anxiety Depression Diastolic dysfunction GERD (gastroesophageal reflux disease) History of thyroid cancer HTN (hypertension) Hypothyroidism Surgical History H/O nasal septoplasty H/O thyroidectomy History of appendectomy History of tonsillectomy and adenoidectomy S/P left knee arthroscopy Family History Father Bone cancer Social History Preferred Language: Kyr[place]z Communication Ability: Effective Resin Maker Required: No Beliefs That Will Affect Care: None marital status: Current Living Situation: Spouse current occupational status: retired Other Information That Helps Us Care for You: No Feels Safe at Home: Yes Safety Concerns: Feels Safe At This Time Smoking Status: Never smoker Hx Alcohol Use: Yes Alcohol type: wine Alcohol Intake Frequency: Weekly Hx Substance Use: No Review of Systems Review of Systems: ROS per HPI, all other systems reviewed and negative Physical Exam Constitutional: WD/WN, vitals as above Eyes: PERRL, conjunctivae normal, anicteric sclerae ENMT: external ear and nose normal, oropharynx normal Respiratory: normal respiratory effort, lungs clear to auscultation Cardiovascular: Rate/Rhythm: regular rate and regular rhythm Vessels: normal peripheral pulses Extremities: no edema Gastrointestinal (Abdomen): normal bowel sounds, soft, nontender, no hepatosplenomegaly Musculoskeletal: no cyanosis or clubbing, extremities motor strength 5/5 Skin: no rashes, warm and dry Neurologic: PERRL, EOMI, accommodation nl, no face palsy, no dysarthria Psychiatric: A+Ox3, euthymic affect Results & Data Vital Signs (Past 12 Hours) Vital Signs Temp Pulse Pulse Resp BP BP Pulse Ox 08/30/19 16:21 36.5 C 84 18 135/80 98 08/30/19 15:39 89 17 137/73 96 08/30/19 13:31 94 H 22 08/30/19 13:30 91 H 22 149/93 H 97 08/30/19 13:01 93 H 18 08/30/19 13:00 94 H 23 147/107 H 08/30/19 12:43 93 H 17 163/95 H 08/30/19 12:42 94 H 18 163/95 H 96 08/30/19 12:31 90 17 97 08/30/19 12:30 89 17 157/106 H 99 08/30/19 12:01 81 15 97 08/30/19 12:00 86 13 174/99 H 98 08/30/19 11:35 98 08/30/19 11:31 90 18 99 08/30/19 11:30 90 19 154/100 H 98 08/30/19 11:24 90 23 148/93 H 99 08/30/19 11:21 90 14 08/30/19 11:16 36.6 C 95 H 20 160/100 H 98 Laboratory Results Short CBC 08/30/19 Range/Units 11:30 WBC 6.38 (4.8-10.8) K/uL Hgb 13.2 (12.0-16.0) g/dL Hct 39.7 (37-47) % Plt Count 242 (130-400) K/uL BMP 08/30/19 11:30 Sodium 141 Potassium 3.6 Chloride 107 Carbon Dioxide 26 BUN 15 Creatinine 1.02 Glucose 108 H Calcium 8.9 Cardiac Enzymes 08/30/19 Range/Units 11:30 Troponin I 0.046 H* (0-0.045) ng/ml Liver Function 08/30/19 Range/Units 11:30 Total Bilirubin 0.5 (0.2-1) mg/dl AST 13 L (15-37) U/L ALT 16 (12-78) U/L Alkaline Phosphatase 86 (45-117) U/L Albumin 4.3 (3.4-5.0) gm/dl Diagnostic Findings CXR IMPRESSION: 1. Mild cardiomegaly. No other convincing evidence of acute cardiopulmonary disease. 2. Suspected hiatal hernia. Code Status & VTE Plan Code Status Patient is a full code as per my discussion with her. VTE Prophylaxis Plan VTE Prophylaxis will be ordered: Yes Supervising Physician Co-Signing Physician Notes Attending addendum: The patient was seen and examined in the emergency room She is a 74 years old female with significant past medical history of hypertension, hypothyroidism, depression and diastolic dysfunction was admitted with chest pain that has been going on for the last 2 days. Pain seems to be at rest with some radiation to the left upper extremity but does not have any other associated symptoms She was feeling better in the emergency room following administration of nitro Noted to have new T inversions involving the V1 to V6 with troponin mildly elevated She was admitted to telemetry unit for continuation of care On examination Anxious but no other apparent distress Hemodynamically stable Chest-clear to auscultate bilaterally Heart-S1-S2, regular, no murmur appreciated Abdomen-benign Extremities-negative for any edema Admission labs, EKG and imaging studies noted Likely has non-ST elevation NV evidenced by EKG changes, chest pain and echocardiographic findings Has been on heparin and beta-hi Cardiology consulted Agree with assessment and plan as outlined above by Leslie Dawson
[2019-08-30] MEDS: METOPROLOL TARTRATE 25 MG TAB PO SCH ×2 (17:46→20:15)
[2019-08-30] MEDS: MIRTAZAPINE TAB 15 MG TAB PO SCH (20:15)
[2019-08-30] MEDS: ACETAMINOPHEN 325 MG TAB PO PRN (20:17)
[2019-08-30] MEDS: NITROGLYCERIN 2% OINTMENT 30GM TUBE EXT SCH (20:23)
[2019-08-30 21:32] LABS: Partial Thromboplastin Ratio 2.1
[2019-08-30 21:35] LABS: Partial Thromboplastin Time 56.5 Seconds (21.0-31.0)
[2019-08-31] MEDS: NITROGLYCERIN 2% OINTMENT 30GM TUBE EXT SCH ×5 (00:29→23:54)
[2019-08-31] MEDS: LEVOTHYROXINE SODIUM 88 MCG TABLET PO SCH (06:08)
[2019-08-31 06:55] LABS: Hematocrit (blood only) 34.3 % (37-47); Hemoglobin 11.5 g/dL (12.0-16.0); Mean Corpuscular Hemoglobin 31.4 pg (25-34); Mean Corpuscular Hgb Conc 33.5 g/dL (32-36); Mean Corpuscular Volume 93.7 fL (80-100); Mean Platelet Volume 9.9 fL (7.4-10.4); Platelet Count 222 K/uL (130-400); RDW Coefficient of Variation 14.7 % (11.5-14.5); RDW Standard Deviation 50.1 fL (36.4-46.3); Red Blood Count 3.66 M/uL (4.2-5.4); White Blood Count 9.46 K/uL (4.8-10.8)
[2019-08-31 07:14] LABS: Partial Thromboplastin Ratio 2.1
[2019-08-31 07:21] LABS: Partial Thromboplastin Time 55.9 Seconds (21.0-31.0)
[2019-08-31 07:33] LABS: BUN Creatinine Ratio 13.4 (10-20); Calcium 8.4 mg/dl (8.5-10.1); Creatinine Clr Calc Pharmacy 42.2 ml/min; Est GFR (African American) 64.9; Potassium 3.6 mmol/L (3.5-5.1)
[2019-08-31] MEDS: VENLAFAXINE HCL XR 75 MG CAPXR PO SCH (07:37)
[2019-08-31] MEDS: VENLAFAXINE HCL XR 150 MG CAPXR PO SCH (07:37)
[2019-08-31] MEDS: METOPROLOL TARTRATE 25 MG TAB PO SCH ×2 (07:37→22:23)
[2019-08-31] MEDS: ARIPIprazole 1 MG/ML ORAL SOLN 150 ML BTL PO SCH ×2 (07:38→12:44)
[2019-08-31] MEDS ORDERED: cefTRIAXone SODIUM 1,000 MG in DEXTROSE 5% 50 ML IV SCH (08:00)
[2019-08-31] MEDS ORDERED: NiCARDipine HCL INJ 2.5 MG/ML 10 ML AMP ONE (08:04)
[2019-08-31] MEDS ORDERED: HEPARIN (PORCINE) 1000 UNIT/ML 10 ML (CATH LAB USE ONLY) ONE ×2 (08:04→11:28)
[2019-08-31] MEDS ORDERED: MIDAZOLAM HCL 1 MG/ML 2ML VIAL ONE (08:04)
[2019-08-31] MEDS ORDERED: fentaNYL citrate 100 MCG/2 ML VIAL ONE (08:04)
[2019-08-31] MEDS ORDERED: NITROGLYCERIN/D5W 100MCG/ML 20ML SYR ONE (08:05)
--- NOTE | 2019-08-31 09:05 | Cardiology Progress Note ---
Date of Service August 31, 2019 Assessment & Plan (1) Chest pain: Probable non-ST segment elevation myocardial infarction with crescendo angina pattern. EKGs reflective of possible septal ischemia with wall motion abnormality observed on echocardiogram Patient symptoms relieved currently topical nitrates. IV heparin and oral beta-hi ordered We will continue topical nitrates Patient without symptoms overnight however EKGs and enzyme pattern suggestive of LAD distribution ischemia Cardiac catheterization this morning as lab available Subjective Patient seen and examined, chart, medications, telemetry reviewed. No chest pain or discomfort overnight no orthopnea or worsening peripheral edema. Blood pressure somewhat labile but generally controlled. EKGs demonstrate evolving anterior T wave abnormalities with persistent troponin elevation Physical Exam Constitutional: WD/WN, vitals as above + thin; no acute distress Eyes: PERRL, conjunctivae normal, anicteric sclerae ENMT: external ear and nose normal, oropharynx normal Neck: trachea midline, no thyromegaly (Thyroidectomy scar present) Respiratory: normal respiratory effort, lungs clear to auscultation Cardiovascular: Rate/Rhythm: regular rate and regular rhythm Heart Sounds: normal S1 and normal S2; no gallop and no murmur Palpation: normal PMI Vessels: normal carotid upstroke and radial pulses present; no JVD and no carotid bruit Extremities: no edema Chest (Breasts): Additional Comments: Bilateral breast implants present Gastrointestinal (Abdomen): normal bowel sounds, soft, nontender, no hepatosplenomegaly Musculoskeletal: no cyanosis or clubbing, extremities motor strength 5/5 Skin: no rashes, warm and dry Neurologic: PERRL, EOMI, accommodation nl, no face palsy, no dysarthria Psychiatric: A+Ox3, euthymic affect Results & Data Vital Signs (Past 12 Hours) Vital Signs Temp Pulse Resp BP Pulse Ox 08/31/19 07:49 36.3 C L 64 18 157/85 H 96 08/31/19 03:27 36.4 C L 69 17 134/74 95 08/30/19 23:41 36.5 C 62 17 139/64 96 Laboratory Results Laboratory Results - last 24 hr 08/30/19 08/30/19 08/30/19 11:30 11:30 11:30 WBC 6.38 RBC 4.22 Hgb 13.2 Hct 39.7 MCV 94.1 MCH 31.3 MCHC 33.2 RDW Std Deviation 49.9 H RDW Coeff of Juan 14.6 H Plt Count 242 MPV 10.2 Immature Gran % (Auto) 0.3 Neut % (Auto) 57.2 Lymph % (Auto) 25.9 [place] % (Auto) 11.4 Eos % (Auto) 4.7 Baso % (Auto) 0.5 Immature Gran # (Auto) 0.02 Neut # (Auto) 3.65 Lymph # (Auto) 1.65 [place] # (Auto) 0.73 H Eos # (Auto) 0.30 Baso # (Auto) 0.03 PT 10.9 INR 1.1 APTT PTT Ratio Sodium 141 Potassium 3.6 Chloride 107 Carbon Dioxide 26 Anion Gap 8.0 BUN 15 Creatinine 1.02 Est Cr Clr Drug Dosing 40.5 Est GFR ( Amer) 61.9 Est GFR (Non-Af Amer) 53.4 BUN/Creatinine Ratio 14.8 Glucose 108 H Calcium 8.9 Total Bilirubin 0.5 AST 13 L ALT 16 Alkaline Phosphatase 86 Troponin I 0.046 H* Total Protein 7.2 Albumin 4.3 Globulin 2.9 Albumin/Globulin Ratio 1.5 Lipase 169 08/30/19 08/30/19 08/30/19 17:16 19:58 22:49 WBC RBC Hgb Hct MCV MCH MCHC RDW Std Deviation RDW Coeff of Juan Plt Count MPV Immature Gran % (Auto) Neut % (Auto) Lymph % (Auto) [place] % (Auto) Eos % (Auto) Baso % (Auto) Immature Gran # (Auto) Neut # (Auto) Lymph # (Auto) [place] # (Auto) Eos # (Auto) Baso # (Auto) PT INR APTT 56.5 H* PTT Ratio 2.1 Sodium Potassium Chloride Carbon Dioxide Anion Gap BUN Creatinine Est Cr Clr Drug Dosing Est GFR ( Amer) Est GFR (Non-Af Amer) BUN/Creatinine Ratio Glucose Calcium Total Bilirubin AST ALT Alkaline Phosphatase Troponin I 0.181 H* 0.106 H* Total Protein Albumin Globulin Albumin/Globulin Ratio Lipase 08/31/19 08/31/19 08/31/19 06:40 06:40 06:40 WBC 9.46 RBC 3.66 L Hgb 11.5 L Hct 34.3 L MCV 93.7 MCH 31.4 MCHC 33.5 RDW Std Deviation 50.1 H RDW Coeff of Juan 14.7 H Plt Count 222 MPV 9.9 Immature Gran % (Auto) Neut % (Auto) Lymph % (Auto) [place] % (Auto) Eos % (Auto) Baso % (Auto) Immature Gran # (Auto) Neut # (Auto) Lymph # (Auto) [place] # (Auto) Eos # (Auto) Baso # (Auto) PT INR APTT 55.9 H* PTT Ratio 2.1 Sodium 143 Potassium 3.6 Chloride 113 H Carbon Dioxide 24 Anion Gap 6.0 BUN 13 Creatinine 0.98 Est Cr Clr Drug Dosing 42.2 Est GFR ( Amer) 64.9 Est GFR (Non-Af Amer) 56.0 BUN/Creatinine Ratio 13.4 Glucose 103 H Calcium 8.4 L Total Bilirubin AST ALT Alkaline Phosphatase Troponin I Total Protein Albumin Globulin Albumin/Globulin Ratio Lipase (1) Chest pain Chest pain type: unspecified Qualified Code(s): R07.9 - Chest pain, unspecified
--- NOTE | 2019-08-31 10:14 | Pre Anesthesia Assessment ---
Date of Service August 31, 2019 Pre Sedation Assessment Vital Signs Temp Pulse Pulse Resp BP BP Pulse Ox 08/31/19 07:49 36.3 C L 64 18 157/85 H 96 08/31/19 03:27 36.4 C L 69 17 134/74 95 08/30/19 23:41 36.5 C 62 17 139/64 96 08/30/19 20:17 71 120/82 08/30/19 18:59 36.6 C 73 19 129/67 95 08/30/19 18:18 85 08/30/19 16:21 36.5 C 84 18 135/80 98 08/30/19 15:39 89 17 137/73 96 08/30/19 13:31 94 H 22 08/30/19 13:30 91 H 22 149/93 H 97 08/30/19 13:01 93 H 18 08/30/19 13:00 94 H 23 147/107 H 08/30/19 12:43 93 H 17 163/95 H 08/30/19 12:42 94 H 18 163/95 H 96 08/30/19 12:31 90 17 97 08/30/19 12:30 89 17 157/106 H 99 08/30/19 12:01 81 15 97 08/30/19 12:00 86 13 174/99 H 98 08/30/19 11:35 98 08/30/19 11:31 90 18 99 08/30/19 11:30 90 19 154/100 H 98 08/30/19 11:24 90 23 148/93 H 99 08/30/19 11:21 90 14 08/30/19 11:16 36.6 C 95 H 20 160/100 H 98 Cardiovascular RRR, no murmur, no edema Respiratory normal respiratory effort, lungs clear to auscultation Pre-Sedation Airway Assessment Smoking Status: Never smoker Hx Sleep Apnea: No Short, Thick Neck: No Thyromental Distance: > or= 3.5 Finger Breadths Oral Cavity: + WNL Mallampati Class: III ASA: ASA3 NPO Status Date of Last Intake of Fluids: 08/30/19 Time of Last Intake of Fluids: 21:30 Date of Last Intake of Solid Food: 08/30/19 Time of Last Intake of Solid Foods: 21:30 Procedure Planning Contraindications for Sedation: none Current Medications Reviewed: Yes Notes The planned sedation has been discussed with the patient. Informed Consent was obtained. I have identified the patient, determined the appropriateness of sedation and have assessed the patient immediately prior to the procedure. All medicine(s) and interventions are by my order.
--- NOTE | 2019-08-31 11:10 | Cardiac Catheterization ---
Cardiac Cath Procedure: Brief Procedure Date August 31, 2019 Pre-Procedure Diagnosis Pre-Procedure Diagnosis: Non STEMI AUC Score AUC Score: 8 Post-Procedure Diagnosis Post-Procedure Diagnosis: Severe CAD (Single-vessel occlusive) Procedure(s) Performed Procedure(s) Performed: Coronary Angiography and Left Heart Cath [employer] Boss Mazin Agarwal MD Shovel Operator(s) Lauren Rebollar Estimated Blood Loss Estimated Blood Loss: <15cc Medication(s) Medication(s): Fentanyl (12.5 mcg IV), Heparin (5000 units IV), Lidocaine 1% (Local infiltration access site), Nicardipine (250 mcg intra-arterial after arterial sheath insertion) and Versed (1 mg IV) Preliminary Findings Coronary angiography: Right dominant coronary anatomy Left main: Moderate caliber with 20% ostial taper Left anterior descending: Type III in distribution. Gives rise to a moderate- sized diagonal branch and septal branch in its proximal third, 2 small diagonal branches in its midportion. Within the left anterior descending there is a 95% proximal stenosis. Disease extends past the septal and diagonal branch narrowing the vessel by 50%. There is moderate irregularities in the rest of the system 40% narrowing of the left anterior descending at the mid and apical juncture. Ramus intermedius: Moderately large bifurcating vessel with long 30% narrowing at its origin Left circumflex: Nondominant, consisting of a large obtuse marginal and 2 small posterior lateral branches. There are mild luminal irregularities in left ci rcumflex with 30% narrowing in the obtuse marginal Right coronary artery: Moderately large caliber dominant vessel. It gives rise to a sinoatrial branch and a small conus branch at its origin, a right ventricular branch at its proximal turn, an early takeoff posterior descending artery at the acute margin and along the AV groove two posterior ventricular branches. There are moderate luminal irregularities only in the right coronary distribution Hemodynamics: LV 187/1/23 Impression: Single-vessel occlusive disease with high-grade 95% proximal left anterior descending stenosis. Plan: Patient to be referred for coronary intervention same setting Recommendations Recommendations: PCI without planned CABG Specimens Specimens: None Fluids (cc crystalloids) Fluids (cc crystalloids): 35 Anesthesia Start time: 1026, stop time: 1048 Procedural Complication(s) None Disposition Patient referred for coronary intervention same setting
--- NOTE | 2019-08-31 11:21 | Cardiac Catheterization ---
Cardiac Cath Procedure Full Procedure Date August 31, 2019 Pre-Procedure Diagnosis Pre-Procedure Diagnosis: Non STEMI AUC Score AUC Score: 8 Post-Procedure Diagnosis Post-Procedure Diagnosis: Severe CAD (Single-vessel occlusive) Procedure(s) Performed Procedure(s) Performed: Coronary Angiography and Left Heart Cath [employer] Hatcher[employer] Laborer Mazin Agarwal MD Human Resources Director(s) Lauren Rebollar Estimated Blood Loss Estimated Blood Loss: <15cc Medication(s) Medication(s): Fentanyl (12.5 mcg IV), Heparin (5000 units IV), Lidocaine 1% (Local infiltration access site), Nicardipine (250 mcg intra-arterial after arterial sheath insertion) and Versed (1 mg IV) Summary of Findings Coronary angiography: Right dominant coronary anatomy Left main: Moderate caliber with 20% ostial taper Left anterior descending: Type III in distribution. Gives rise to a moderate- sized diagonal branch and septal branch in its proximal third, 2 small diagonal branches in its midportion. Within the left anterior descending there is a 95% proximal stenosis. Disease extends past the septal and diagonal branch narrowing the vessel by 50%. There is moderate irregularities in the rest of the system 40% narrowing of the left anterior descending at the mid and apical juncture. Ramus intermedius: Moderately large bifurcating vessel with long 30% narrowing at its origin Left circumflex: Nondominant, consisting of a large obtuse marginal and 2 small posterior lateral branches. There are mild luminal irregularities in left circu mflex with 30% narrowing in the obtuse marginal Right coronary artery: Moderately large caliber dominant vessel. It gives rise to a sinoatrial branch and a small conus branch at its origin, a right v entricular branch at its proximal turn, an early takeoff posterior descending artery at the acute margin and along the AV groove two posterior ventricular branches. There are moderate luminal irregularities only in the right coronary distribution Hemodynamics: LV Impression: Single-vessel occlusive disease with high-grade 95% proximal left anterior descending stenosis, with moderate atherosclerosis other vasculature Plan: Patient to be referred for coronary intervention same setting Hemodynamics Rest Ao:: 200/100/139 Final Ao: 194/95/136 LV: 12/11/22 Recommendations Recommendations: PCI without planned CABG Specimens Specimens: None Radiation Exposure (mGy) 333 Contrast (mls) 50 Fluids (cc crystalloids) Fluids (cc crystalloids): 35 Anesthesia Start time: 1026, stop time: 1048 Procedural Complication(s) None Disposition Patient referred for coronary intervention same setting I attest to the content of the Intraoperative Record and any orders documented therein. Any exceptions are noted below. ACC Data: Ammonia Solution Preparer Cardiac Status Clinical evaluation leading to the procedure 74-year-old female with history of hypertension hyperlipidemia who presented to the emergency room with symptoms consistent with crescendo angina, T wave i nversion in anteroseptal leads on EKG and troponin elevation consistent with non-ST segment elevation myocardial infarction. Echocardiogram confirms mild hypokinesis inferior anterior septum CAD Presenation: Non STEMI Anginal Classification: CCS IV Heart Failure: No Cardiogenic Shock within 24 Hours: No Cardiac Arrest within 24 Hours: No Imaging Studies Past 6 Months: Yes Stress Studies Past 6 Months: No Standard Exercise Test: No Stress Echocardiogram: No Stress Testing w/SPECT MPI: No Cardiac CTA: No Coronary Anatomy Dominant: Right Left Main (% Stenosis): Ostial (20 ) LAD (% Stenosis): Proximal (95) and Mid (50 early) D1 (% Stenosis): Proximal (30) D2 (% Stenosis): Normal D3 (% Stenosis): Normal OM1 (% Stenosis): Proximal (30) L PL1 (% Stenosis): Normal RCA (% Stenosis): Mid (20) R PDA (% Stenosis): Normal (Long, early takeoff) R PL1 (% Stenosis): Normal R PL2 (% Stenosis): Normal Ramus (% Stenosis): Ostial (40) Diagnostic Physicians Name: Mazin Agarwal MD Status: Urgent Closure Device Percutaneous Entry Location: Radial Recommendations: PCI without planned CABG PCI Indication: PCI for high risk Non-LEMUEL
[2019-08-31] MEDS ORDERED: ONDANSETRON INJ 2 MG/ML 2 ML VIAL ONE (11:41)
[2019-08-31] MEDS ORDERED: CLOPIDOGREL BISULFATE 300 MG TAB ONE (11:57)
[2019-08-31] MEDS ORDERED: ONDANSETRON INJ 2 MG/ML 2 ML VIAL IV PRN (12:32)
--- NOTE | 2019-08-31 12:32 | Post Anesthesia Assessment ---
Date of Service August 31, 2019 Post Sedation Assessment Vital Signs Temp Pulse Pulse Resp BP BP Pulse Ox 08/31/19 12:14 54 L 16 183/92 H 97 08/31/19 12:00 64 14 181/99 H 96 08/31/19 07:49 97.3 F L 64 18 157/85 H 96 08/31/19 03:27 97.5 F L 69 17 134/74 95 08/30/19 23:41 97.7 F 62 17 139/64 96 08/30/19 20:17 71 120/82 08/30/19 18:59 97.9 F 73 19 129/67 95 08/30/19 18:18 85 08/30/19 16:21 97.7 F 84 18 135/80 98 08/30/19 15:39 89 17 137/73 96 08/30/19 13:31 94 H 22 08/30/19 13:30 91 H 22 149/93 H 97 08/30/19 13:01 93 H 18 08/30/19 13:00 94 H 23 147/107 H 08/30/19 12:43 93 H 17 163/95 H 08/30/19 12:42 94 H 18 163/95 H 96 Recovery Score Activity: Moves 4 extremities Respiration: Deep Breath/Cough Circulation: +/-20% PreAnes Value Consciousness: Fully Awake Oxygen Saturation: O2 needed for >90% Discharge Sedation Level of Care: Fast Track Phase II Post Sedation Plan On clinical assessment, the patient appears to have tolerated the sedation without complications. Patient is recovering as anticipated. Patient will continue to be monitored by nursing and may be discharged when sedation discharge criteria are met per below protocol. Upon Completions of procedure and additional 15 minutes continue every 5 minute vital signs and the P.A.R. score; then discharge to a Phase I or Fast Track to Phase II per the following guidelines: * Discharge Patient to appropriate Phase II area if PAR is 8 or greater or return to pre- procedure baseline. The post - procedure orders will be as directed. * If PAR score is less than 8 or not return to pre-procedure baseline then patient will follow Phase I monitoring till PAR is reached for Phase II. The Phase I may be done in procedure room or may call to secure a Phase I area. * If naloxone or flumazenil are used for reversal, hold in Phase I for continued monitoring from when last reversal dose was given for a minimum of 60 minutes or longer pending the nurse and/or physician discretion of patient condition before discharge to Phase II. Please call the Sedation Physician to re-evaluate and complete post-note for discharge to Phase II area. Do NOT discharge from procedure sedation or Phase 1 until post- sedation evaluation note is complete by procedure /sedation MD Sedation Discharge Instructions to be given to the patient at discharge to home.
--- NOTE | 2019-08-31 12:43 | Cardiac Catheterization ---
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[employer] Cardiac Status Clinical evaluation leading to the procedure CAD Presenation: Non STEMI Anginal Classification: CCS IV Heart Failure: No Cardiogenic Shock within 24 Hours: No Cardiac Arrest within 24 Hours: No Imaging Studies Past 6 Months: Yes Stress Studies Past 6 Months: No Diagnostic Physicians Name: Jaime Singh MD Status: Urgent Closure Device Percutaneous Entry Location: Radial Closure Device: Radial Band Recommendations: PCI without planned CABG PCI Indication: PCI for high risk Non-LEMUEL Lesion Segment Name: Proximal LAD Culprit Artery: Yes Stenosis Prior to Rx (%): 95 Chronic Total Occlusion: No IVUS: Yes FFR: No Pre-Procedure LENNOX Flow: 3 Previously Treated Lesion: No Lesion Complexity: Non-High/Non-C Lesion Length (mm): 30 Thrombus Present: Yes Bifurcation Lesion: Yes Guidewire Across Lesion: Stenosis Post-Procedure (%): 0 Post-Procedure LENNOX Flow: 3 Devices(s) Deployed: Yes Yes Intraprocedure Events Significant Disection: No Perforation: No Cardiac Cath Procedure Full Procedure Date August 31, 2019 Pre-Procedure Diagnosis Pre-Procedure Diagnosis: Non STEMI AUC Score AUC Score: 8 Post-Procedure Diagnosis Post-Procedure Diagnosis: Severe CAD (Single-vessel occlusive) and Successful PCI Procedure(s) Performed Procedure(s) Performed: Coronary Angiography, Drug Eluting Stent and IVUS Face Hardener Jaime Singh MD Quilt Maker(s) Lauren Rebollar Estimated Blood Loss Estimated Blood Loss: <15cc Medication(s) Medication(s): Clopidogrel, Fentanyl (12.5 mcg IV), Heparin (5000 units IV), Lidocaine 1% (Local infiltration access site), Nicardipine (250 mcg intra- arterial after arterial sheath insertion), Nitroglycerin and Versed (1 mg IV) Summary of Findings Indication: High risk NSTEMI Access: 6 Fr right radial artery Catheters: JL 3.5 guide Findings: For full details of patient's coronary angiography please cath report dictated by Dr. Agarwal. Briefly, patient found to have severe single vessel disease with a 95% ostial/proximal LAD stenosis. Decision to proceed with PCI. -- PCI -- Antithrombotic therapy: Heparin, clopidogrel Procedure: Left main cannulated with JL 3.5 guide BMW wire passed across lesion into distal LAD Pro-water wire placed into circumflex Proximal LAD lesion predilated with 2.5 compliant balloon IVUS used to assess extent of disease, degree of calcification, involvement of left main. Severe disease extending from mid segment across takeoff of first diagonal all the way back to LAD ostium with mild to moderate calcification. Dilated lesion stented with 3.0 x 33 mm Xience Jillian drug-eluting stent Stent post-dilated with 3.5 noncompliant balloon IC vasodilators administered for spasm Repeat IVUS showed well-expanded stent with no apparent edge complications Post procedure LENNOX 3 flow, stent well expanded with minimal residual stenosis and no apparent cardiac complications. Arterial Closure: TR band Summary: 1. Successful PCI of ostial/proximal LAD with single drug-eluting stent (3.0 x 33 mm Xience Jillian; postdilated with 3.5 NC). Recommendations: To PCU for continued monitoring Loaded with clopidogrel 600 mg in medical laboratory manager Continue dual-antiplatelet therapy for at least one year Continue statin, and ASCVD risk factor modification Consult cardiac Rehab Recommendations Recommendations: PCI without planned CABG Specimens Specimens: None Fluids (cc crystalloids) Fluids (cc crystalloids): 35 Anesthesia Start time: 1026, stop time: 1048 Procedural Complication(s) None Disposition PCU I attest to the content of the Intraoperative Record and any orders documented therein. Any exceptions are noted below.
[2019-08-31] MEDS ORDERED: SODIUM CHLORIDE 0.9% 1000ML 1,000 ML IV SCH (12:45)
[2019-08-31] MEDS: LOSARTAN POTASSIUM 50 MG TAB PO SCH (12:45)
[2019-08-31] MEDS: ASCORBIC ACID 500 MG TAB PO SCH (13:14)
[2019-08-31] MEDS: MULTIVITAMIN TAB PO SCH (13:14)
--- NOTE | 2019-08-31 13:16 | Hospitalist Progress Note ---
Date of Service August 31, 2019 Assessment & Plan (1) NSTEMI (non-ST elevated myocardial infarction): Tele -Patient presenting from home with reports of waxing and waning chest pain for the past 2 days -In the ED, EKG demonstrates new T wave inversions in the anterior leads, initial troponin mildly elevated 0.046 -Resting echo demonstrates septal wall hypokinesis -Risk factors: HTN, age -Patient now chest pain-free after topical nitro applied in the ED; will continue -Heparin drip started, will continue -Beta-hi ordered -s/p LHC +LAD stent sec to 95% Occlusion (2) HTN (hypertension): -BP elevated on presentation, improved after topical nitro -Continue losartan -Starting metoprolol as above (3) Diastolic dysfunction: -Grade 1 diastolic dysfunction noted on echo -Appears euvolemic -Does not take routine diuretics (4) Hypothyroidism: -Continue levothyroxine (5) Depression: Controlled on Busparone and Effexor (6) Anxiety: -Continue home medications (7) DVT prophylaxis: -On heparin drip DC in 1-2 days Labs checked ROS-No Headache, No Visual Changes, No Nausea, No Vomiting, No Fever, No Chills, No Neck Pain or Stiffness, No Chest Pain, No Palpitations, No SOB, No SCHULER, No Co ugh, No Sputum, No Wheezing, No Abdominal Pain, No Diarrhea, No Hematemesis, No Hemoptysis, No Unexpected Weight Loss, No Flank pain, No Melena, No Hematochezia, No Frequency, No Urgency, No Burning, No Hematuria, No Rashes, No Diaphoresis. Appetite is Normal Physical Exam Gen-AAO x 3, NAD, Afebrile Head-NCAT, EOMI, PERRLA, Anicteric Sclera, No Posterior Pharyngeal Erythema Neck-Supple, No JVD, No Thyromegaly, No Masses, No LAD, No Bruits Lungs-Clear to Auscultation Bilaterally, No Rales, No Rhonchi, No Wheezing, No Crepitus Chest-No S4, +S1, +S2, No S3, No Murmurs, No Rubs, No Gallops, No Ectopy Abdomen-Soft, Bowel Sounds Present, Non Tender, Non Distended, No Hepatomegaly, No Splenomegaly, No Palpable Masses, No Rebound, No Rigidity, No Guarding Musculoskeletal-Full Range of Motion Bilaterally, No CVAT Extremities-No Cyanosis, No Clubbing, No Edema Nuero-Cranial Nerves II-XII grossly intact, Motor WNL, DTRs WNL, Strength WNL, Non Focal Psych-Normal Mood Results & Data Vital Signs (Past 12 Hours) Vital Signs Temp Pulse Resp BP Pulse Ox 08/31/19 12:14 54 L 16 183/92 H 97 08/31/19 12:00 64 14 181/99 H 96 08/31/19 07:49 36.3 C L 64 18 157/85 H 96 08/31/19 03:27 36.4 C L 69 17 134/74 95
[2019-08-31] MEDS ORDERED: AMLODIPINE BESYLATE 5 MG TAB PO ONE (14:36)
[2019-08-31] MEDS: ACETAMINOPHEN 325 MG TAB PO PRN (15:38)
--- NOTE | 2019-08-31 16:01 | Cardiology Progress Note ---
Date of Service August 31, 2019 Subjective Patient seen and examined post cardiac catheterization. Feeling well denies any chest pain or discomfort PCI of proximal left understanding went well with excellent result Radial access site still oozing secondary to anticoagulation and elevated blood pressures Plan increase topical nitrates to 2 inches every 6 hours, add amlodipine 2.5 mg/day beginning today continue metoprolol and losartan. Add statin with rosuvastatin 20 mill grams p.o. daily Results & Data Vital Signs (Past 12 Hours) Vital Signs Temp Pulse Pulse Resp BP BP Pulse Ox 08/31/19 15:29 36.6 C 66 23 178/100 H 97 08/31/19 14:01 66 21 08/31/19 14:00 72 21 187/105 H 08/31/19 13:46 68 19 08/31/19 13:45 66 17 173/102 H 08/31/19 13:30 65 18 178/106 H 08/31/19 13:16 68 17 08/31/19 13:15 68 23 176/109 H 08/31/19 13:05 63 20 96 08/31/19 13:01 181/99 H 08/31/19 12:48 66 12 174/110 H 08/31/19 12:46 55 L 20 174/110 H 08/31/19 12:45 53 L 15 08/31/19 12:36 54 L 14 186/111 H 94 08/31/19 12:32 175/107 H 91 08/31/19 12:31 90 08/31/19 12:14 54 L 16 183/92 H 97 08/31/19 12:00 64 14 181/99 H 96 08/31/19 07:49 36.3 C L 64 18 157/85 H 96
[2019-08-31] MEDS ORDERED: NITROGLYCERIN 2% OINTMENT 30GM TUBE ONE (16:24)
[2019-08-31 18:47] LABS: Appearance Urine Clear (Clear); Bacteria Urine Automated 4+ (Negative); Bilirubin Urine Negative (Negative); Blood Urine Negative (Negative); Cast Urine Automated 0 /lpf (0-5); Color Urine Yellow; Epithelial Cell Urine Auto 20-30 /lpf (0-5); Glucose Urine UA Negative (Negative); Ketones Urine Negative (Negative); Leukocyte Esterase Urine Trace (Negative); Nitrite Urine Negative (Negative); Protein Urine Negative (Negative); RBC Urine Automated 0-4 /hpf (0-4); Specific Gravity Urine 1.028 (1.000-1.030); Urobilinogen Urine Negative (Negative)
[2019-08-31] MEDS: MIRTAZAPINE TAB 15 MG TAB PO SCH (22:23)
[2019-08-31] MEDS: cefTRIAXone SODIUM 1,000 MG in DEXTROSE 5% 50 ML IV SCH (22:23)
[2019-09-01] MEDS: LEVOTHYROXINE SODIUM 88 MCG TABLET PO SCH (06:10)
[2019-09-01] MEDS: NITROGLYCERIN 2% OINTMENT 30GM TUBE EXT SCH ×2 (06:10→06:14)
--- NOTE | 2019-09-01 06:58 | Discharge Summary ---
Date of Service September 01, 2019 Admission HPI Per Admitting Provider 74-year-old female who presents the ED for evaluation of chest pain. Patient reports her symptoms began about 2 days ago. Chest pain started while patient was at rest. Reports chest pain has been coming and going over the past couple of days. Pain acutely worsened last night into this morning and therefore patient presented to the ED for further evaluation. She also had associated diaphoresis today. Patient describes the pain is located on the left side of her chest. She describes it as an ache. She also has radiation of the pain into her left arm. No specific causative or alleviating factors. Patient rates her pain as a #9/10 at its worst. No associated shortness of breath, nausea, lightheadedness, dizziness, syncopal event. Reports she otherwise has been feeling well recently. Says she is very active at baseline, climbs stairs on a regular basis, and can perform activities of daily living without difficulty. No other recent illnesses, fevers, chills. She denies abdominal pain, vomiting, diarrhea. No urinary symptoms. In the ED, EKG demonstrates new T wave inversions in the anterior leads. Initial troponin mildly elevated 0.046. BP is mildly elevated but otherwise patient is hemodynamically stable. She was given topical nitroglycerin with subsequent resolution of chest pain. She was also given IV Tylenol, full dose aspirin, and started on heparin drip. Admission Exam Per Admitting Provider Constitutional: WD/WN, vitals as above Eyes: PERRL, conjunctivae normal, anicteric sclerae ENMT: external ear and nose normal, oropharynx normal Respiratory: normal respiratory effort, lungs clear to auscultation Cardiovascular: Rate/Rhythm: regular rate and regular rhythm Vessels: normal peripheral pulses Extremities: no edema Gastrointestinal (Abdomen): normal bowel sounds, soft, nontender, no hepatosplenomegaly Musculoskeletal: no cyanosis or clubbing, extremities motor strength 5/5 Skin: no rashes, warm and dry Neurologic: PERRL, EOMI, accommodation nl, no face palsy, no dysarthria Psychiatric: A+Ox3, euthymic affect Principal Diagnosis (1) NSTEMI (non-ST elevated myocardial infarction): (2) HTN (hypertension): (3) Diastolic dysfunction: (4) Hypothyroidism: (5) Depression: (6) Anxiety: (7) UTI Discharge Exam ROS-No Headache, No Visual Changes, No Nausea, No Vomiting, No Fever, No Chills, No Neck Pain or Stiffness, No Chest Pain, No Palpitations, No SOB, No SCHULER, No Cough, No Sputum, No Wheezing, No Abdominal Pain, No Diarrhea, No Hematemesis, No Hemoptysis, No Unexpected Weight Loss, No Flank pain, No Melena, No Hematochezia, No Frequency, No Urgency, No Burning, No Hematuria, No Rashes, No Diaphoresis. Appetite is Normal Physical Exam Gen-AAO x 3, NAD, Afebrile Head-NCAT, EOMI, PERRLA, Anicteric Sclera, No Posterior Pharyngeal Erythema Neck-Supple, No JVD, No Thyromegaly, No Masses, No LAD, No Bruits Lungs-Clear to Auscultation Bilaterally, No Rales, No Rhonchi, No Wheezing, No Crepitus Chest-No S4, +S1, +S2, No S3, No Murmurs, No Rubs, No Gallops, No Ectopy Abdomen-Soft, Bowel Sounds Present, Non Tender, Non Distended, No Hepatomegaly, No Splenomegaly, No Palpable Masses, No Rebound, No Rigidity, No Guarding Musculoskeletal-Full Range of Motion Bilaterally, No CVAT Extremities-No Cyanosis, No Clubbing, No Edema Nuero-Cranial Nerves II-XII grossly intact, Motor WNL, DTRs WNL, Strength WNL, Non Focal Psych-Normal Mood Discharge Data Allergies Allergy/AdvReac Type Severity Reaction Status Date / Time codeine Allergy Unknown VOMITING Unverified 08/30/19 12:01 prochlorperazine Allergy Unknown "my jaw Unverified 08/30/19 12:01 locks." Consultations 08/30/19 12:59 ED Decision to Admit Stat 08/30/19 16:03 Consult Cardiology Routine 08/31/19 12:35 Consult Cardiac Rehabilitation Routine Procedures Performed Operation Date: 08/31/19 08:00 Actual Procedures p Cath, Left with Cors and Vent(Not Applicable) - Mazin Agarwal MD s Cineradiography w/Routine Exam - Mazin Agarwal MD s Drug Eluting Stent SGl Vessel - Douglas Singh MD s IVUS Coronary Single Vessel - Douglas Singh MD Ordered Studies 08/31/19 10:02 CL Cath Imgs for PACS use only Routine Hospital Course (1) NSTEMI (non-ST elevated myocardial infarction): -s/p LHC +LAD stent sec to 95% Occlusion (2) HTN (hypertension): -BP elevated on presentation, improved after topical nitro -Continue losartan, norvasc and lopressor (3) Diastolic dysfunction: -Grade 1 diastolic dysfunction noted on echo -Appears euvolemic -Does not take routine diuretics (4) Hypothyroidism: -Continue levothyroxine (5) Depression: Controlled on Buspirone Remeron and Effexor (6) Anxiety: -Continue home medications (7) DVT prophylaxis: DC today after cards sees her, f/u c PCP and Cards Labs checked ROS-No Headache, No Visual Changes, No Nausea, No Vomiting, No Fever, No Chills, No Neck Pain or Stiffness, No Chest Pain, No Palpitations, No SOB, No SCHULER, No Cough, No Sputum, No Wheezing, No Abdominal Pain, No Diarrhea, No Hematemesis, No Hemoptysis, No Unexpected Weight Loss, No Flank pain, No Melena, No Hematochezia, No Frequency, No Urgency, No Burning, No Hematuria, No Rashes, No Diaphoresis. Appetite is Normal Physical Exam Gen-AAO x 3, NAD, Afebrile Head-NCAT, EOMI, PERRLA, Anicteric Sclera, No Posterior Pharyngeal Erythema Neck-Supple, No JVD, No Thyromegaly, No Masses, No LAD, No Bruits Lungs-Clear to Auscultation Bilaterally, No Rales, No Rhonchi, No Wheezing, No Crepitus Chest-No S4, +S1, +S2, No S3, No Murmurs, No Rubs, No Gallops, No Ectopy Abdomen-Soft, Bowel Sounds Present, Non Tender, Non Distended, No Hepatomegaly, No Splenomegaly, No Palpable Masses, No Rebound, No Rigidity, No Guarding Musculoskeletal-Full Range of Motion Bilaterally, No CVAT Extremities-No Cyanosis, No Clubbing, No Edema Nuero-Cranial Nerves II-XII grossly intact, Motor WNL, DTRs WNL, Strength WNL, Non Focal Psych-Normal Mood Total Time Total Time Spent Total Time Spent (In Minutes): 45 mins Total Time Includes: Examination of the Patient, Discharge Planning, Medication Reconciliation and Communication With Other Providers Discharge Plan Discharge Items Patient Disposition: Home - Self-Care Reason For Visit: NSTEMI Discharge Diagnosis: (1) NSTEMI (non-ST elevated myocardial infarction): (2) HTN (hypertension): (3) Diastolic dysfunction: (4) Hypothyroidism: (5) Depression: (6) Anxiety Condition on Discharge: Good Activity: Resume your previous activity Lifting: Gradually increase as tolerated Bathing: No limitations Sexual Activity: When tolerated Driving/Machine Use: No limitations Weightbearing: Full weightbearing Non-emergency contact: Primary Care Provider and Storage Wharfage Clerk Call non-emergency contact if: you have any medication questions Follow-up/Referrals: Haris Dinh MD [Primary Care Provider] - Mazin Agarwal MD [Physician] - (2-3 weeks) Diet: Heart Healthy Addtl Attending Provider Instructions: ACTIVITY RECOMMENDATIONS: Excess manipulation of the wrist should be avoided for the next 24-48 hours. * No lifting over 2 pounds (approximately a 1/2 gallon of milk) with the utilized arm for 24 hours. * No strenuous activity such as bowling or tennis for 3 days. * Keep the site of the procedure covered with a bandage for 24 hours. *You may shower the day after the procedure. Do not take a tub bath or submerge the puncture site in water for the next 3 days. *Do not operate any motorized equipment for 3 days. SPECIAL CARE INSTRUCTIONS: The site may be slightly bruised and sore following your procedure. Should any of the following occur, contact the Dr. who performed your procedure. 1. Redness/inflammation, swelling, chills, or fever, or colored drainage at procedure site within 3-7 days after your procedure. 2. Coldness, discoloration, ongoing numbness, severe pain, or swelling. Expect mild tingling of hand and tenderness at the puncture site for up to three days. If this persists beyond three days, or other symptoms develop, notify the Dr. who performed your procedure. BLEEDING: If the procedure site on your wrist begins to bleed, do not panic 1. Place 1 or 2 fingers firmly just slightly above the insertion site to stop the bleeding. You may be able to feel your pulse as you hold pressure. 2. Lift your finger after 5 minutes to see if the bleeding has stopped. 3. Once the bleeding has stopped, gently wipe the wrist area clean with a bandage. * If the bleeding from your wrist does not stop after 10 minutes, or if there is a large amount of bleeding or spurting, call 911 (do not drive yourself to the hospital). SKIN IRRITATION: * You may experience some redness and/or swelling in the area where radiation was administered. If any skin irritation occurs, please contact your family physician. FOLLOW UP VISIT: Keep any scheduled doctor appointments. Pending Studies at Discharge: No Stand-Alone Forms: Call Back Authorization, My [facility], Smoking Cessation Medications and DC Order Prescriptions: New clopidogrel 75 mg Tablet 75 mg PO QAM Qty: 30 RF: 0 amlodipine [Norvasc] 5 mg Tablet 5 mg PO QAM Qty: 30 RF: 0 aspirin [Ecotrin Low Strength] 81 mg Tablet,Delayed Release (Dr/Ec) 81 mg PO QAM Qty: 100 RF: 0 rosuvastatin [Crestor] 20 mg Tablet 20 mg PO QAM Qty: 30 RF: 0 metoprolol tartrate 25 mg Tablet 37.5 mg PO BID Qty: 90 RF: 0 Continued multivitamin Tablet 1 tab PO QAM RF: 0 losartan 50 mg tablet 50 mg PO QAM RF: 0 ascorbic acid (vitamin C) [Vitamin C] 1,000 mg Tablet 1,000 mg PO QAM RF: 0 venlafaxine 75 mg capsule,extended release 24hr 75 mg PO QAM RF: 0 venlafaxine 150 mg capsule,extended release 24hr 150 mg PO QAM RF: 0 levothyroxine [Synthroid] 88 mcg tablet 88 mcg PO QAM RF: 0 mirtazapine 30 mg tablet 30 mg PO HS RF: 0 buspirone 10 mg tablet 10 mg PO BID RF: 0 ibuprofen [Advil] 200 mg Tablet 200 mg PO QID PRN (Reason: Pain) RF: 0 ergocalciferol (vitamin D2) 50,000 unit capsule 50,000 unit PO MONTHLY RF: 0 aripiprazole 2 mg tablet 2 mg PO DAILY RF: 0 levothyroxine [Synthroid] 88 mcg tablet 44 mcg PO HAQ RF: 0 Discharge Orders: Discharge Order (Routine); Ordered 09/01/19 Ordered By: Mark Tan Admission Data Admit Date/Time: 08/30/19 17:26 Attending Provider: Mark Tan Provider: Douglas Dawson Primary Care Provider: Haris Dinh Other Providers: Douglas Dawosn ; Mazin Agarwal
[2019-09-01] MEDS: ARIPIprazole 1 MG/ML ORAL SOLN 150 ML BTL PO SCH (07:49)
[2019-09-01] MEDS: ASCORBIC ACID 500 MG TAB PO SCH (07:49)
[2019-09-01] MEDS: LOSARTAN POTASSIUM 50 MG TAB PO SCH (07:50)
[2019-09-01] MEDS: VENLAFAXINE HCL XR 75 MG CAPXR PO SCH (07:50)
[2019-09-01] MEDS: VENLAFAXINE HCL XR 150 MG CAPXR PO SCH (07:51)
[2019-09-01] MEDS: MULTIVITAMIN TAB PO SCH (07:51)
[2019-09-01] MEDS: cefTRIAXone SODIUM 1,000 MG in DEXTROSE 5% 50 ML IV SCH (07:57)
[2019-09-01] MEDS ORDERED: CLOPIDOGREL BISULFATE 75 MG TAB PO SCH (09:00)
[2019-09-01] MEDS ORDERED: METOPROLOL TARTRATE 25 MG TAB PO SCH (09:00)
[2019-09-01] MEDS ORDERED: cefTRIAXone SODIUM 1,000 MG in DEXTROSE 5% 50 ML IV SCH (09:00)
[2019-09-01] MEDS ORDERED: ASPIRIN 81 MG ECTAB PO SCH (09:00)
[2019-09-01] MEDS ORDERED: AMLODIPINE BESYLATE 5 MG TAB PO SCH (09:00)
[2019-09-01] MEDS ORDERED: ROSUVASTATIN CALCIUM 20 MG TAB PO SCH (09:00)
[2019-09-01 09:23] LABS: Hematocrit (blood only) 36.9 % (37-47); Hemoglobin 12.6 g/dL (12.0-16.0)
[2019-09-01 09:40] LABS: BUN Creatinine Ratio 7.5 (10-20); Calcium 8.8 mg/dl (8.5-10.1); Creatinine Clr Calc Pharmacy 35.6 ml/min; Est GFR (African American) 54.1; Est GFR (Non-African American) 46.7; Potassium 3.3 mmol/L (3.5-5.1)
--- NOTE | 2019-09-01 10:05 | Cardiology Progress Note ---
Date of Service September 01, 2019 Assessment & Plan (1) Chest pain: s/p successful PCI to LAD, resolution of symptoms otherwise, nonobstructive disease only minimal troponin elevation and no ventricular arrhythmias or ectopy s/p pci given her: successful revascularization, resolution of symptoms, lack of wall motion abnormality on echo along with sundowning would d/c to home today my office will call to arrange f/u in 2-4 weeks aspirin lifelong, plavix approx 12 months cont crestor and metoprolol (2) HTN (hypertension): improved would d/c home on current meds will give a dose of KCl x 1 now and order bmp as outpatient in 1 week Subjective Pt seen and examined, at bedside. Pt states that she feels well. Has ambulated in hallway without recurrence of chest pain or sob. Denies palp itations, lightheadedness or dizziness. Right wrist site dressed appropriately without signs of active bleeding, no significant bruising. Nursing reports some 'sundowning' overnight along with some confusion this AM. tele reviewed: sinus rhythm without arrhythmia or significant ectopy. Review of Systems Review of Systems: All systems reviewed & are unremarkable except as noted in HPI & below Physical Exam Physical Exam: General: Awake, alert and oriented x 3. No acute distress. HEENT: Normocephalic, atraumatic. Pupils equal, round and reactive to light and accommodation. Extraocular muscles are intact. Anicteric sclera. Moist mucous membranes. Neck: No JVD. No bruit. Cardiovascular: Regular. Positive S-4. Normal S-1 and S-2. No S-3. No murmurs or rubs. Pulmonary: Clear to auscultation B/L. No rales, rhonchi or wheezing Abdomen: Bowel sounds x 4, soft. No rebound, guarding or tenderness. No organomegaly. Extremities: No clubbing, cyanosis or edema. +2 pedal pulses bilaterally. Skin: Warm and dry. Results & Data Vital Signs (Past 12 Hours) Vital Signs Temp Pulse Pulse Resp BP Pulse Ox 09/01/19 07:36 37.2 C 78 18 158/97 H 95 09/01/19 03:30 37.0 C 79 20 161/91 H 96 09/01/19 01:09 83 08/31/19 23:22 36.8 C 78 17 149/90 H 95 Laboratory Results Laboratory Results - last 24 hr 08/31/19 09/01/19 09/01/19 18:10 09:11 09:11 Hgb 12.6 Hct 36.9 L Sodium 137 Potassium 3.3 L Chloride 105 Carbon Dioxide 23 Anion Gap 9.0 BUN 9 Creatinine 1.14 Est Cr Clr Drug Dosing 35.6 Est GFR ( Amer) 54.1 Est GFR (Non-Af Amer) 46.7 BUN/Creatinine Ratio 7.5 L Glucose 215 H Calcium 8.8 Urine Color Yellow Urine Appearance Clear Urine pH 7.0 Ur Specific Nahma 1.028 Urine Protein Negative Urine Glucose (UA) Negative Urine Ketones Negative Urine Blood Negative Urine Nitrite Negative Urine Bilirubin Negative Urine Urobilinogen Negative Ur Leukocyte Esterase Trace H Urine WBC (Auto) 5-10 H Urine RBC (Auto) 0-4 U Hyaline Cast (Auto) 0 U Epithel Cells (Auto) 20-30 H Urine Bacteria (Auto) 4+ H Medications Administered Current Inpatient Medications Acetaminophen (Tylenol) 650 mg PO Q4H PRN PRN Reason: Pain or Fever Stop: 09/29/19 16:02 Last Admin: 08/31/19 15:38 Dose: 650 mg Documented by: [facility]) [facility] Stop: 10/01/19 08:59 Aripiprazole (Abilify) 2 mg PO DAILY [facility] Stop: 09/30/19 08:59 Last Admin: 09/01/19 07:49 Dose: 2 mg Documented by: Ascorbic Acid (Vitamin C) 1,000 mg PO DAILY [facility] Stop: 09/30/19 08:59 Last Admin: 09/01/19 07:49 Dose: 1,000 mg Documented by: Aspirin (Ecotrin Ectab) 81 mg PO QAM [facility] Stop: 10/01/19 08:59 Last Admin: 09/01/19 07:49 Dose: 81 mg Documented by: Buspirone HCl (Buspar) 10 mg PO BID [facility] Stop: 09/29/19 20:59 Last Admin: 09/01/19 07:51 Dose: 10 mg Documented by: Clopidogrel Bisulfate (Plavix) 75 mg PO QAM [facility] Stop: 10/01/19 08:59 Last Admin: 09/01/19 07:49 Dose: 75 mg Documented by: Ceftriaxone Sodium 1,000 mg/ (Dextrose) 60 mls @ 100 mls/hr IV DAILY [facility]; Protocol Stop: 09/10/19 20:29 Last Infusion: 09/01/19 08:33 Dose: Infused Documented by: Levothyroxine Sodium (Synthroid) 44 mcg PO Orozco@0630 [facility] Stop: 10/02/19 06:29 Levothyroxine Sodium (Synthroid) 88 mcg PO DAILYBB [facility] Stop: 09/30/19 06:29 Last Admin: 09/01/19 06:10 Dose: 88 mcg Documented by: Losartan Potassium (Cozaar) 50 mg PO QAM [facility] Stop: 09/30/19 08:59 Last Admin: 09/01/19 07:50 Dose: 50 mg Documented by: Metoprolol Tartrate (Lopressor) 37.5 mg PO BID [facility] Stop: 10/01/19 08:59 Last Admin: 09/01/19 07:50 Dose: 37.5 mg Documented by: Mirtazapine (Remeron) 30 mg PO HS [facility] Stop: 09/29/19 20:59 Last Admin: 08/31/19 22:23 Dose: 30 mg Documented by: Multivitamins (Multivitamin Tab) 1 tab PO [facility] Stop: 09/30/19 08:59 Last Admin: 09/01/19 07:51 Dose: 1 tab Documented by: Nitroglycerin (Nitro-Bid 2%) 2 inch EXT Q6 [facility] Stop: 09/30/19 17:59 Last Admin: 09/01/19 06:14 Dose: 2 inch Documented by: Ondansetron HCl (Zofran) 4 mg IV Q6H PRN PRN Reason: Nausea And Vomiting Stop: 09/30/19 12:31 Last Admin: 08/31/19 16:49 Dose: 4 mg Documented by: Rosuvastatin Calcium (Crestor) [facility] [place] Stop: 10/01/19 08:59 Venlafaxine HCl (Effexor Extended Release) [facility] [place] Stop: 09/30/19 08:59 Last Admin: 09/01/19 07:50 Dose: 75 mg Documented by: Venlafaxine HCl (Effexor Extended Release) 150 mg PO QAM [facility] Stop: 09/30/19 08:59 Last Admin: 09/01/19 07:51 Dose: 150 mg Documented by: (1) Chest pain Chest pain type: unspecified Qualified Code(s): R07.9 - Chest pain, unspecified
[2019-09-01] MEDS ORDERED: POTASSIUM CHLORIDE 20 MEQ TABCR PO STA (10:09)
[2019-09-02] MEDS ORDERED: LEVOTHYROXINE SODIUM 88 MCG TABLET PO SCH (06:30)
== END 2019-09-01 11:34 | disposition home or self-care (01) | DRG 247 ==
LOC: ED 11:12 → 2E 11:12 → SUATTDRO 17:26 → 2E 08-31 19:02